=== PATIENT | female | born 1940 | race Caucasian/White ===

== ENCOUNTER 2016-04-03 10:16 | Outpatient (CLI) | payer MEDICARE, OTHER | END 2016-04-03 10:17 | disposition home or self-care (01) | DX: M79.1 Myalgia (principal); M54.5 Low back pain; M51.36 Other intervertebral disc degeneration, lumbar region; M43.16 Spondylolisthesis, lumbar region; M47.9 Spondylosis, unspecified ==

== ENCOUNTER 2016-10-29 08:00 | Outpatient (CLI) | payer MEDICARE, OTHER | END 2016-10-29 08:01 | disposition home or self-care (01) | LOC: LAB.R 08:00 | PROVIDERS: ATTEND Physician Assistant Medical | DX: N30.00 Acute cystitis without hematuria (principal) | CPT/HCPCS: 87086 ==

== ENCOUNTER 2017-07-08 08:00 | Outpatient (CLI) | payer MEDICARE, OTHER | END 2017-07-08 08:01 | disposition home or self-care (01) | LOC: LAB.R 08:00 | PROVIDERS: ATTEND Physician Assistant Medical | DX: N30.00 Acute cystitis without hematuria (principal) | CPT/HCPCS: 87086 ==

== ENCOUNTER 2017-07-14 08:15 | Outpatient (CLI) | payer MEDICARE, OTHER ==
[2017-07-14 08:29] LABS: BASOPHILS # (AUTO) 0.1 10^3/uL (0.0-0.1); BASOPHILS % (AUTO) 1.2 %; EOSINOPHILS # (AUTO) 0.4 10^3/uL (0.0-0.7); EOSINOPHILS % (AUTO) 9.3 %; HGB - HEMOGLOBIN 12.4 g/dL (12.0-16.0); LYMPHOCYTES # (AUTO) 1.4 10^3/uL (1.5-3.5); LYMPHOCYTES % (AUTO) 29.1 %; MEAN CORPUSCULAR HEMOGLOBIN 31.3 pg (27.0-31.0); MEAN CORPUSCULAR HGB CONC 34.3 g/dL (32.0-36.0); MEAN CORPUSCULAR VOLUME 91.2 fL (81.0-99.0); MEAN PLATELET VOLUME 7.2 fL (7.9-10.8); MONOCYTES # (AUTO) 0.6 10^3/uL (0.0-1.0); MONOCYTES % (AUTO) 11.9 %; NEUTROPHILS # (AUTO) 2.3 10^3/uL (1.5-6.6); NEUTROPHILS % (AUTO) 48.5 %; PLT - PLATELET COUNT 224 10^3/uL (130-450); RED BLOOD COUNT 3.97 10^6/uL (4.20-5.40); RED CELL DISTRIBUTION WIDTH 13.5 % (12.0-15.0); WHITE BLOOD COUNT 4.8 x10^3/uL (4.8-10.8)
[2017-07-14 08:46] LABS: ALBUMIN 3.7 g/dL (3.2-5.5); ALBUMIN/GLOBULIN RATIO 1.2 (1.0-2.2); ALKALINE PHOSPHATASE 80 IU/L (42-121); ALT ALANINE AMINOTRANSFERASE 20 IU/L (10-60); AST ASPARTATE AMINOTRANSFERASE 26 IU/L (10-42); BILIRUBIN,TOTAL 0.7 mg/dL (0.2-1.0); BUN - BLOOD UREA NITROGEN 25 mg/dL (6-20); CALCIUM 8.7 mg/dL (8.5-10.3); CARBON DIOXIDE - CO2 26 mmol/L (21-32); CHLORIDE 104 mmol/L (101-111); CHOL/HDL RATIO 3.6 (<4.4); CHOLESTEROL 235 mg/dL; CREATININE 1.1 mg/dL (0.4-1.0); GFR - MDRD 48 (>89); GLUCOSE 94 mg/dL (70-100); HDL CHOLESTEROL 66 mg/dL; LDL CHOLESTEROL,CALCULATED 143 mg/dL; LDL/HDL RATIO 2.2 (<4.4); SODIUM 137 mmol/L (135-145); TOTAL PROTEIN 6.9 g/dL (6.7-8.2); VLDL CHOLESTEROL 26 mg/dL
[2017-07-14 09:31] LABS: THYROID STIMULATING HORMONE 0.85 uIU/mL (0.34-5.60)
[2017-07-14 09:33] LABS: FREE T4 (FREE THYROXINE) 1.13 ng/dL (0.58-1.64)
== END 2017-07-14 08:16 | disposition home or self-care (01) ==
LOC: LAB 08:15
PROVIDERS: ATTEND Physician Assistant Medical
DX: E03.9 Hypothyroidism, unspecified (principal); E78.2 Mixed hyperlipidemia; Z79.899 Other long term (current) drug therapy
CPT/HCPCS: 36415; 80053; 80061; 83721; 84439; 84443; 84481; 85025

== ENCOUNTER 2017-07-22 14:45 | Outpatient (CLI) | payer MEDICARE, OTHER | END 2017-07-22 14:46 | disposition home or self-care (01) | LOC: LAB.R 14:45 | PROVIDERS: ATTEND Internal Medicine | DX: N30.00 Acute cystitis without hematuria (principal) | CPT/HCPCS: 87086 ==

== ENCOUNTER 2017-11-26 12:56 | Outpatient (CLI) | payer MEDICARE, OTHER | END 2017-11-26 12:57 | disposition critical access hospital (66) | LOC: EMS 12:56 | PROVIDERS: ATTEND Surgery | DX: R07.9 Chest pain, unspecified (principal); J34.89 Other specified disorders of nose and nasal sinuses; W01.0XXA Fall on same level from slipping, tripping and stumbling without subsequent striking against object, initial encounter; Y93.01 Activity, walking, marching and hiking; Y92.480 Sidewalk as the place of occurrence of the external cause | CPT/HCPCS: A0425; A0429 ==

== ENCOUNTER 2017-11-26 13:13 | Emergency (ER) | payer MEDICARE, OTHER ==
--- NOTE | 2017-11-26 14:09 | XRAY Report ---
Reason: anterior chest contusion Procedure Date: 11/26/2017 Accession Number: [id number] / [id number] Procedure: XR - Chest 2 View X-Ray CPT Code: 56911 FULL RESULT: EXAM: CHEST RADIOGRAPHY EXAM DATE: 11/26/2017 01:49 PM. CLINICAL HISTORY: Fall. Anterior chest contusion. Pain. COMPARISON: CHEST 2 VIEW PA/LAT 01/09/2015 4:19 PM. TECHNIQUE: 2 views. FINDINGS: Lungs/Pleura: Increasing interstitial densities left lung base. Costophrenic angles are clear. Right lung is clear. Normal lung volumes. No pneumothorax. Mediastinum: Heart and mediastinal contours are unremarkable. Other: None. IMPRESSION: Suspect acute on chronic lung disease consisting of small left lung base infiltrate. Correlate clinically to differentiate pneumonia from atelectasis. RADIA
--- NOTE | 2017-11-26 14:38 | ED Physician Documentation ---
PD HPI Fall - Stated complaint Stated Complaint: GLF - Chief complaint Chief Complaint: Neuro - History obtained from History obtained from: Patient - History of Present Illness Mechanism of injury: Tripped Fall distance: Standing position Where injury occurred: Street Timing - onset: Today Injury(ies) location: Face, Chest, Right Hand Quality of pain: Pain Associated symptoms: No: LOC, AMS, Amnesia, Seizures, Ear drainage, Nasal drainage, Neck pain, Weakness, Paresthesias, Dyspnea, Nausea / vomiting, Hematemesis, Abdominal distension Symptoms improve with: Rest, Ice Worsens with: Movement, Palpation Contributing factors: No: Anticoagulated Similar symptoms before: Has not had sx before Recently seen: Not recently seen - Additional information Additional information: Previously well 77-year-old female had gone to her exercise class this morning and gone out to lunch with her friend and then she was walking along the sidewalk and tripped over a 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 She barely had time to get her right hand out in front of her and has a small abrasion to the palm of her right hand. She was not knocked unconscious. She did get the wind knocked out of her and it took her a while to gather herself. She was brought to the hospital by ambulance. Her chief complaint on arrival to the emergency department is chest wall pain and some bleeding from a nasal contusion with swelling. Review of Systems Constitutional: denies: Fever Eyes: denies: Decreased vision Ears: denies: Ear pain Nose: reports: Other (nasal bridge swelling and laceration). denies: Rhinorrhea / runny nose, Congestion Cardiac: reports: Chest pain / pressure. denies: Palpitations, Pedal edema, Calf pain Respiratory: denies: Dyspnea, Cough GI: denies: Abdominal Pain, Nausea, Vomiting : denies: Dysuria, Frequency Skin: denies: Rash Musculoskeletal: denies: Neck pain, Back pain, Extremity pain Neurologic: reports: Head injury. denies: Generalized weakness, Focal weakness, Numbness, Difficulty speaking, Near syncope, Syncope, Seizure, Confused, Altered mental status, Headache, LOC PD PAST MEDICAL HISTORY - Past Medical History Past Medical History: No Cardiovascular: Hypertension Respiratory: None Neuro: None Endocrine/Autoimmune: HyPOthyroidism GI: Colon polyps : None HEENT: None Psych: None Musculoskeletal: Gout Derm: None - Past Surgical History Past Surgical History: Yes General: Colonoscopy Ortho: Knee replacement, Carpal Tunnel surgery /COOK STATION: Hysterectomy HEENT: Cataracts - Present Medications Home Medications: Ambulatory Orders Medication Instructions Recorded Confirmed Amlodipine Besylate [Norvasc] 2.5 mg PO DAILY 04/13/14 04/13/14 Calcium Carbonate [Calcium] 500 mg PO DAILY 04/13/14 04/13/14 Cholecalciferol (Vitamin D3) 400 unit PO DAILY 04/13/14 04/13/14 [Vitamin D] Levothyroxine [Synthroid] 100 mcg PO QDAC 04/13/14 04/13/14 RX: Lisinopril 20 mg PO DAILY 04/13/14 04/13/14 RX: Metoprolol Succinate 50 mg PO DAILY 04/13/14 04/13/14 RX: predniSONE [Prednisone] 3 mg PO DAILY 04/13/14 04/13/14 Zolpidem [Ambien] 5 mg PO HS 04/13/14 04/13/14 RX: HYDROcod/ACETAM 5/325 [Mason 1 - 2 ea PO Q6H PRN #15 tablet 11/26/17 5/325] - Allergies Allergies/Adverse Reactions: Allergies Allergy/AdvReac Type Severity Reaction Status Date / Time latex Allergy Rash Verified 11/26/17 13:21 Sulfa (Sulfonamide Allergy Unknown Verified 11/26/17 13:21 Antibiotics) - Social History Does the pt smoke?: No Smoking Status: Never smoker Does the pt drink ETOH?: No Does the pt have substance abuse?: No - Immunizations Immunizations are current?: Yes - POLST Patient has POLST: No PD ED PE NORMAL - Vitals Vital signs reviewed: Yes (hypertensive ) - General General: Alert and oriented X 3, No acute distress, Well developed/nourished - HEENT HEENT: PERRL, EOMI, Other (There are 2 superficial lacerations to the nasal bridge and swelling to the nasal bridge. ) - Neck Neck: Supple, no meningeal sign, No bony TTP - Cardiac Cardiac: RRR, No murmur - Respiratory Respiratory: No respiratory distress, Clear bilaterally, Other (There is marked anterior chest wall tenderness ) - Abdomen Abdomen: Soft, Non tender - Back Back: No CVA TTP, No spinal TTP - Derm Derm: Normal color, Warm and dry, No rash - Extremities Extremities: No deformity, No edema - Neuro Neuro: Alert and oriented X 3, water operator 2-12 intact, No motor deficit, No sensory def icit, Normal speech Eye Opening: Spontaneous Motor: Obeys Commands Verbal: Oriented GCS Score: 15 - Psych Psych: Normal mood Results - Vitals Vitals: Vital Signs - 24 hr 11/26/17 11/26/17 11/26/17 13:13 13:17 15:03 Temperature 36.2 C L 36.6 C Heart Rate 76 84 71 Respiratory 18 18 20 Rate Blood Pressure 164/67 H 203/109 H 169/72 H O2 Saturation 98 99 96 Oxygen O2 Source Room air - Rads (name of study) 2 view chest Radiology: Prelim report reviewed (Impression: Suspect acute on chronic lung disease consisting of small left lung base infiltrate. Correlate clinically to differentiate pneumonia from atelectasis.), EMP read indepedently, See rad report Procedures - Laceration (location) nasal bridge Length in cm: 1.5 Wound type: Linear, Superficial, Clean Neurovascular status: Sensory intact, Motor intact, Vascular intact Wound Preparation: Hibiclens, Wound explored, To the base Skin layer closure: Dermabond Other: Patient tolerated well, No complications, Neurovascular intact, Dressing applied, Tetanus UTD Complexity: Simple PD MEDICAL DECISION MAKING - ED course Complexity details: reviewed old records, reviewed results, re-evaluated patient, considered differential, d/w patient ED course: 77-year-old female with a fall onto her chest has anterior chest wall pain she does have some superficial lacerations to the nasal bridge and some swelling. She had no loss of consciousness with a fall she did get the wind knocked out of her and she has a chest wall contusion. I am seeing some mild atelectasis on her chest x-ray. Departure - Departure Disposition: 01 Home, Self Care Clinical Impression: Chest wall contusion, Laceration of nose Condition: Stable Instructions: ED Contusion Chest Wall, ED Laceration Facial Skin Glue Follow-Up: Delisa Castaneda PA-C [Primary Care Provider] - Prescriptions: RX: HYDROcod/ACETAM 5/325 [Mason 5/325] 1 - 2 ea PO Q6H PRN #15 tablet PRN Reason: Pain Discharge Date/Time: 11/26/17 15:09
[2017-11-26 15:04] VITALS: BP 169/72
== END 2017-11-26 15:09 | disposition home or self-care (01) ==
LOC: EDUNIT# → ED 13:13
DX: S20.219A Contusion of unspecified front wall of thorax, initial encounter (principal); S01.21XA Laceration without foreign body of nose, initial encounter; W01.0XXA Fall on same level from slipping, tripping and stumbling without subsequent striking against object, initial encounter; Y93.01 Activity, walking, marching and hiking; Y92.480 Sidewalk as the place of occurrence of the external cause; I10 Essential (primary) hypertension; E03.9 Hypothyroidism, unspecified; Z96.659 Presence of unspecified artificial knee joint
CPT/HCPCS: 12011; 71046; 99283

== ENCOUNTER 2017-12-29 12:17 | Outpatient (CLI) | payer MEDICARE, OTHER ==
--- NOTE | 2017-12-29 13:18 | XRAY Report ---
Reason: EXERTIONAL DYPSNEA, DEPENDENT EDEMA Procedure Date: 12/29/2017 Accession Number: [id number] / [id number] Procedure: XR - Chest 2 View X-Ray CPT Code: 16786 FULL RESULT: EXAM: CHEST RADIOGRAPHY EXAM DATE: 12/29/2017 12:57 PM. CLINICAL HISTORY: EXERTIONAL DYSPNEA, DEPENDENT EDEMA. COMPARISON: CHEST 2 VIEW 11/26/2017 1:49 PM. TECHNIQUE: 2 views. FINDINGS: Heart size is normal. Calcified plaques throughout the thoracic aorta. No consolidation, pleural effusion, or pneumothorax. Diffuse prominence of the pulmonary interstitium, increased AP diameter of the chest, and flattening of the diaphragms likely related to chronic lung disease. Mild streaky scarring and/or atelectasis in the lung bases. Mild biphasic curvature of the visualized thoracolumbar spine. IMPRESSION: No acute cardiopulmonary findings. RADIA
[2017-12-29 13:35] LABS: BASOPHILS # (AUTO) 0.1 10^3/uL (0.0-0.1); BASOPHILS % (AUTO) 1.3 %; EOSINOPHILS # (AUTO) 0.3 10^3/uL (0.0-0.7); EOSINOPHILS % (AUTO) 4.5 %; HGB - HEMOGLOBIN 12.4 g/dL (12.0-16.0); LYMPHOCYTES # (AUTO) 0.9 10^3/uL (1.5-3.5); LYMPHOCYTES % (AUTO) 12.7 %; MEAN CORPUSCULAR HEMOGLOBIN 31.7 pg (27.0-31.0); MEAN CORPUSCULAR HGB CONC 34.4 g/dL (32.0-36.0); MEAN PLATELET VOLUME 7.4 fL (7.9-10.8); MONOCYTES # (AUTO) 0.5 10^3/uL (0.0-1.0); NEUTROPHILS % (AUTO) 73.5 %; PLT - PLATELET COUNT 272 10^3/uL (130-450); RED CELL DISTRIBUTION WIDTH 13.8 % (12.0-15.0); WHITE BLOOD COUNT 6.8 x10^3/uL (4.8-10.8)
[2017-12-29 13:51] LABS: ALBUMIN 2.4 g/dL (3.2-5.5); ALBUMIN/GLOBULIN RATIO 0.7 (1.0-2.2); BILIRUBIN,TOTAL 0.5 mg/dL (0.2-1.0); CALCIUM 8.1 mg/dL (8.5-10.3); CREATININE 1.2 mg/dL (0.4-1.0); TOTAL PROTEIN 5.7 g/dL (6.7-8.2)
== END 2017-12-29 12:18 | disposition home or self-care (01) ==
LOC: DI 12:17
PROVIDERS: ATTEND Internal Medicine
DX: R06.00 Dyspnea, unspecified (principal); R60.9 Edema, unspecified
CPT/HCPCS: 36415; 71046; 80053; 83880; 85025

== ENCOUNTER 2018-01-09 08:00 | Outpatient (CLI) | payer MEDICARE, OTHER | END 2018-01-09 23:59 | disposition home or self-care (01) | LOC: LAB.N 08:00 | PROVIDERS: ATTEND Internal Medicine | DX: R60.9 Edema, unspecified (principal) | CPT/HCPCS: 36415; 85379 ==

== ENCOUNTER 2018-01-12 15:08 | Outpatient (CLI) | payer MEDICARE, OTHER ==
--- NOTE | 2018-01-12 16:51 | Ultrasound Report ---
Reason: ABNORMAL LABS,EDEMA Procedure Date: 01/12/2018 Accession Number: [id number] / [id number] Procedure: US - Duplex Ext Veins Bilateral CPT Code: FULL RESULT: EXAM: BILATERAL LOWER EXTREMITY VENOUS ULTRASOUND EXAM DATE: 01/12/2018 04:37 PM. CLINICAL HISTORY: ABNORMAL LABS,EDEMA. COMPARISON: None. TECHNIQUE: Real-time sonographic vascular imaging was performed by the rn admission through the lower extremities utilizing both color-flow and Doppler spectral analysis. Multiple client relations representative static images were saved for review. FINDINGS: Right: Common Femoral Vein (CFV): Normal. CFV-GSV Junction: Normal. Profunda Femoral Vein (PFV): Normal. Femoral Vein (FV) Prox: Normal. Femoral Vein (FV) Mid: Normal. Femoral Vein (FV) Dist: Normal. Popliteal Vein: Normal. Posterior Tibial Veins: Normal. Peroneal Veins: Normal. Left: Common Femoral Vein (CFV): Normal. CFV-GSV Junction: Normal. Profunda Femoral Vein (PFV): Normal. Femoral Vein (FV) Prox: Normal. Femoral Vein (FV) Mid: Normal. Femoral Vein (FV) Dist: Normal. Popliteal Vein: Normal. Posterior Tibial Veins: Normal. Peroneal Veins: Normal. Other: None. IMPRESSION: No evidence for deep venous thrombosis bilaterally. RADIA
== END 2018-01-12 15:09 | disposition home or self-care (01) ==
LOC: DI 15:08
PROVIDERS: ATTEND Internal Medicine
DX: R60.0 Localized edema (principal); R79.89 Other specified abnormal findings of blood chemistry
CPT/HCPCS: 93970

== ENCOUNTER 2018-01-13 08:00 | Outpatient (CLI) | payer MEDICARE, OTHER ==
[2018-01-13 12:19] LABS: ALBUMIN 2.1 g/dL (3.2-5.5); ALBUMIN/GLOBULIN RATIO 0.7 (1.0-2.2); BILIRUBIN,TOTAL 0.5 mg/dL (0.2-1.0); CALCIUM 8.2 mg/dL (8.5-10.3); CREATININE 1.1 mg/dL (0.4-1.0); TOTAL PROTEIN 5.2 g/dL (6.7-8.2)
== END 2018-01-13 23:59 | disposition home or self-care (01) ==
LOC: LAB.R 08:00
PROVIDERS: ATTEND Internal Medicine
DX: R60.9 Edema, unspecified (principal)
CPT/HCPCS: 80053

== ENCOUNTER 2018-01-13 13:46 | Outpatient (CLI) | payer MEDICARE, OTHER ==
[2018-01-13] MEDS ORDERED: IOVERSOL 320 100 ML VIAL IVP ONE ×2 (14:20→15:23)
--- NOTE | 2018-01-13 16:02 | CT Report ---
Reason: EDEMA Procedure Date: 01/13/2018 Accession Number: [id number] / [id number] Procedure: CT - Abdomen/Pelvis W/ CPT Code: FULL RESULT: EXAM: CT ABDOMEN AND PELVIS WITH CONTRAST. EXAM DATE: 01/13/2018 03:20 PM. CLINICAL HISTORY: Edema. COMPARISONS: None. TECHNIQUE: Routine helical CT imaging was performed through the abdomen and pelvis. IV contrast: ISOVUE 320 90 mL. Enteric contrast: No. Reconstructions: Coronal and sagittal. In accordance with CT protocol optimization, one or more of the following dose reduction techniques were utilized for this exam: automated exposure control, adjustment of mA and/or KV based on patient size, or use of iterative reconstructive technique. FINDINGS: Lung Bases: Unremarkable. Liver: Right hepatic hypodensity which is too small to characterize. Gallbladder/Bile Ducts: Unremarkable. Spleen: Normal. Pancreas: Normal. Adrenal Glands: Normal. Kidneys: Normal. No masses or hydronephrosis. Peritoneal Cavity/Bowel: Diverticulosis without diverticulitis. There are mass-like calcifications throughout the mesentery which measure up to 1.5 cm. No free fluid, free air or adenopathy. No masses or acute inflammatory process. The appendix is well visualized and normal. Pelvic Organs: There is a septated cystic 4.8 x 5.5 cm mass in the pelvis which arises from the left round ligament and is therefore likely adnexal in origin. The patient is status post hysterectomy. The bladder and visualized pelvic organs are within normal limits. Vasculature: Marked atherosclerosis without aneurysm. No occlusion or overt thrombus in the IVC or iliac veins. Bones: No aggressive osseous lesions are identified. Other: None. IMPRESSION: No venoocclusive disease in the IVC or iliac veins. Complex cystic likely adnexal mass. Recommend pelvic ultrasound to confirm adnexal origin versus direct referral for gynecologic management. Mass-like calcifications throughout the mesentery. RADIA
--- NOTE | 2018-01-13 16:25 | CT Report ---
Reason: EDEMA Procedure Date: 01/13/2018 Accession Number: [id number] / [id number] Procedure: CT - Chest Angio (PE) CPT Code: FULL RESULT: EXAM: CT ANGIOGRAM CHEST EXAM DATE: 01/13/2018 03:20 PM. CLINICAL HISTORY: Edema. COMPARISON: None. TECHNIQUE: Routine helical imaging was performed through the chest in the pulmonary arterial phase. IV Contrast: Isovue-320 90 mL. Reconstructions: Coronal 3-D MIP reconstructions.Sagittal and coronal. In accordance with CT protocol optimization, one or more of the following dose reduction techniques were utilized for this exam: automated exposure control, adjustment of mA and/or KV based on patient size, or use of iterative reconstructive technique. FINDINGS: Pulmonary Arteries: Diagnostic quality: Adequate through the segmental arteries. No evidence for acute or chronic pulmonary emboli. RV/LV is within normal limits. There is no interventricular septal bowing. There is no reflux of contrast material in the IVC. Lungs/Pleura: Mild lower lobe predominant interstitial septal thickening and bronchiectasis, possibly subclinical chronic aspiration. No consolidation, suspicious nodules, or edema. No effusions or pneumothorax. Mediastinum: No cardiac enlargement or adenopathy. Thoracic Aorta: Markedly atherosclerotic without aneurysm. Upper Abdomen: See separate examination. Other: None. IMPRESSION: No evidence of pulmonary embolism. RADIA
== END 2018-01-13 13:47 | disposition home or self-care (01) ==
LOC: DI 13:46
PROVIDERS: ATTEND Internal Medicine
DX: R60.0 Localized edema (principal); R79.89 Other specified abnormal findings of blood chemistry; J47.9 Bronchiectasis, uncomplicated; I70.0 Atherosclerosis of aorta; R19.00 Intra-abdominal and pelvic swelling, mass and lump, unspecified site; N94.89 Other specified conditions associated with female genital organs and menstrual cycle; Z90.710 Acquired absence of both cervix and uterus
CPT/HCPCS: 71275; 74177; Q9967; 80053

== ENCOUNTER 2018-01-20 20:38 | Outpatient (CLI) | payer MEDICARE, OTHER ==
--- NOTE | 2018-01-21 11:10 | Ultrasound Report ---
Reason: PELVIC MASS Procedure Date: 01/20/2018 Accession Number: [id number] / [id number] Procedure: US - Pelvic w/Transvaginal CPT Code: FULL RESULT: EXAM: PELVIC ULTRASOUND EXAM DATE: 01/20/2018 09:48 PM. CLINICAL HISTORY: Pelvic mass. COMPARISON: ABDOMEN/PELVIS W/ 01/13/2018 3:03 PM LUMBAR SPINE 2 VIEW 04/03/2016 11:41 AM. TECHNIQUE: Realtime transabdominal pelvic scan performed to identify the uterus and adnexa and as an overview of other pelvic structures, followed by transvaginal scan to provide greater detail of the uterus and adnexa, with static image documentation. FINDINGS: Uterus: Status post hysterectomy. Right Ovary: Not seen. No abnormal mass is seen in the right adnexal region. Left Ovary: A multiseptated cyst is seen in the left adnexal region with no definite ovary identified. The cyst measured 5.5 x 4.3 x 5.6 cm for a volume of 69 mL. No abnormal vascularity is detected within the cyst on limited color Doppler. Free Fluid: None. Other: None. IMPRESSION: Nonvisualization of the right and left ovaries. Complex left adnexal cyst measuring up to 5.6 cm as described. RADIA
== END 2018-01-20 20:39 | disposition home or self-care (01) ==
LOC: DI 20:38
PROVIDERS: ATTEND Internal Medicine
DX: N94.89 Other specified conditions associated with female genital organs and menstrual cycle (principal)
CPT/HCPCS: 76830; 76856

== ENCOUNTER 2018-01-30 13:47 | Outpatient (CLI) | payer MEDICARE, OTHER ==
[2018-01-30 13:16] LABS: BASOPHILS # (AUTO) 0.2 10^3/uL (0.0-0.1); BASOPHILS % (AUTO) 3.3 %; EOSINOPHILS # (AUTO) 0.6 10^3/uL (0.0-0.7); EOSINOPHILS % (AUTO) 9.1 %; HGB - HEMOGLOBIN 12.5 g/dL (12.0-16.0); LYMPHOCYTES % (AUTO) 15.8 %; MEAN CORPUSCULAR HEMOGLOBIN 31.9 pg (27.0-31.0); MEAN CORPUSCULAR HGB CONC 34.4 g/dL (32.0-36.0); MEAN CORPUSCULAR VOLUME 92.7 fL (81.0-99.0); MEAN PLATELET VOLUME 7.4 fL (7.9-10.8); MONOCYTES # (AUTO) 0.6 10^3/uL (0.0-1.0); MONOCYTES % (AUTO) 9.8 %; PLT - PLATELET COUNT 257 10^3/uL (130-450); RED BLOOD COUNT 3.92 10^6/uL (4.20-5.40); RED CELL DISTRIBUTION WIDTH 13.9 % (12.0-15.0); WHITE BLOOD COUNT 6.4 x10^3/uL (4.8-10.8)
[2018-01-30 13:31] LABS: ALBUMIN/GLOBULIN RATIO 0.7 (1.0-2.2); BILIRUBIN,TOTAL 0.4 mg/dL (0.2-1.0); CALCIUM 7.8 mg/dL (8.5-10.3); CREATININE 1.2 mg/dL (0.4-1.0)
== END 2018-01-30 13:48 | disposition home or self-care (01) ==
LOC: DI 13:47
PROVIDERS: ATTEND Internal Medicine
DX: R19.09 Other intra-abdominal and pelvic swelling, mass and lump (principal); R89.9 Unspecified abnormal finding in specimens from other organs, systems and tissues; R06.09 Other forms of dyspnea; R60.0 Localized edema; I10 Essential (primary) hypertension; I08.1 Rheumatic disorders of both mitral and tricuspid valves
CPT/HCPCS: 36415; 80053; 85025; 86304; 93306

== ENCOUNTER 2018-02-14 01:18 | Outpatient (CLI) | payer MEDICARE, OTHER | END 2018-02-14 01:19 | disposition critical access hospital (66) | LOC: EMS 01:18 | PROVIDERS: ATTEND Surgery | DX: R51 Headache (principal) | CPT/HCPCS: A0425; A0429 ==

== ENCOUNTER 2018-02-14 01:34 | Emergency (ER) | payer MEDICARE, OTHER ==
--- NOTE | 2018-02-14 01:48 | ED Physician Documentation ---
PD HPI HEADACHE - Stated complaint Stated Complaint: MARTINEZ - Chief complaint Chief Complaint: Neuro - History obtained from History obtained from: Patient, Family, EMS - History of Present Illness Timing - onset: Today Timing - onset during: Sleep Timing - duration: Minutes Timing - details: Abrupt onset, Still present Worst headache ever?: Worst headache ever? Location: Front, Left Quality: Throbbing Associated symptoms: Nausea, Vomiting, Eye pain. No: Fever, Stiff neck, Weakness, Numbness, Syncope, Seizure Improved by: Rest, Dark room Worsened by: Light Contributing factors: Recent illness. No: Anticoagulated, Possible carbon monoxide Similar symptoms before: Has not had sx before Recently seen: Admitted - Additional information Additional information: 77-year-old female who is a recent admission to the [facility] for nephrotic syndrome has had a kidney biopsy recently and she was discharged from the hospital yesterday. She was in bed tonight asleep when she was awakened by a sudden severe headache above the left eye. She had some nausea and vomiting associated with this and called the ambulance she denies any weakness on one side or the other or numbness. She denies a history of migraine. Review of Systems Constitutional: reports: Fatigue. denies: Fever, Chills Eyes: denies: Decreased vision Ears: denies: Ear pain Nose: denies: Rhinorrhea / runny nose, Congestion Throat: denies: Sore throat Cardiac: denies: Chest pain / pressure, Palpitations Respiratory: denies: Dyspnea, Cough GI: denies: Abdominal Pain, Nausea, Vomiting : reports: Frequency. denies: Dysuria Skin: denies: Rash Musculoskeletal: denies: Neck pain, Back pain Neurologic: reports: Headache. denies: Generalized weakness, Focal weakness, Numbness, Head injury, LOC PD PAST MEDICAL HISTORY - Past Medical History Cardiovascular: Hypertension Respiratory: None Neuro: None Endocrine/Autoimmune: HyPOthyroidism GI: Colon polyps : None HEENT: None Psych: None Musculoskeletal: Gout Derm: None - Past Surgical History Past Surgical History: Yes General: Colonoscopy Ortho: Knee replacement, Carpal Tunnel surgery /COPY MANAGER: Hysterectomy HEENT: Cataracts - Present Medications Home Medications: Ambulatory Orders Medication Instructions Recorded Confirmed RX: Metoprolol Succinate 25 mg PO DAILY 04/13/14 02/14/18 Candesartan/Hydrochlorothiazid 32 mg PO DAILY 02/14/18 02/14/18 [Candesartan-Hctz 16-12.5 mg Tb] RX: Amlodipine Besylate 10 mg PO DAILY 02/14/18 02/14/18 RX: Atorvastatin Calcium 1 tab PO DAILY 02/14/18 02/14/18 RX: Levothyroxine Sodium 1 tab PO DAILY 02/14/18 02/14/18 RX: Prednisone [Palma] 2 mg PO DAILY 02/14/18 02/14/18 RX: Torsemide 40 mg PO DAILY 02/14/18 02/14/18 RX: hydroCHLOROthiazide 1 tab PO DAILY 02/14/18 02/14/18 [Hydrochlorothiazide] - Allergies Allergies/Adverse Reactions: Allergies Allergy/AdvReac Type Severity Reaction Status Date / Time latex Allergy Rash Verified 02/14/18 01:50 Sulfa (Sulfonamide Allergy Unknown Verified 02/14/18 01:50 Antibiotics) - Social History Does the pt smoke?: No Smoking Status: Never smoker Does the pt drink ETOH?: No Does the pt have substance abuse?: No - Immunizations Immunizations are current?: Yes - POLST Patient has POLST: No PD ED PE NORMAL - Vitals Vital signs reviewed: Yes (hypertensive ) - General General: Alert and oriented X 3, Well developed/nourished, Other (appears to be in pain with heater worker tone and flat affect. Recognizes me readily. grunting in pain ) - HEENT HEENT: Atraumatic, PERRL, EOMI - Neck Neck: Supple, no meningeal sign, No bony TTP - Cardiac Cardiac: RRR, No murmur - Respiratory Respiratory: No respiratory distress, Clear bilaterally - Abdomen Abdomen: Soft, Non tender - Back Back: No CVA TTP, No spinal TTP - Derm Derm: Normal color, Warm and dry, No rash - Extremities Extremities: No deformity, Normal ROM s pain, Other (There is tender trace edema without erythema to the lower calves bilaterally ) - Neuro Neuro: Alert and oriented X 3, still operator 2-12 intact, No motor deficit, No sensory deficit Eye Opening: Spontaneous Motor: Obeys Commands Verbal: Oriented GCS Score: 15 - Psych Psych: Normal mood, Other (affect is blunted by response to pain. ) Results - Vitals Vitals: Vital Signs - 24 hr 02/14/18 02/14/18 02/14/18 01:35 01:59 02:24 Temperature 36.0 C L Heart Rate 84 79 78 Respiratory 18 18 16 Rate Blood Pressure 167/83 H 105/92 H 162/70 H O2 Saturation 98 100 98 02/14/18 02/14/18 02/14/18 02:56 03:54 04:00 Temperature 37.3 C Heart Rate 73 89 Respiratory 10 L 17 Rate Blood Pressure 144/83 H 154/67 H O2 Saturation 93 97 02/14/18 02/14/18 02/14/18 04:37 05:30 06:11 Temperature 37.4 C Heart Rate 76 72 Respiratory 13 14 Rate Blood Pressure 142/62 H 137/86 H O2 Saturation 96 96 95 Oxygen O2 Source Nasal cannula Oxygen Flow Rate 3 - Labs Labs: Laboratory Tests 02/14/18 02/14/18 02/14/18 02:25 02:25 02:25 WBC 6.2 RBC 3.90 L Hgb 12.4 Hct 35.5 L MCV 91.0 MCH 31.8 H MCHC 34.9 RDW 14.2 Plt Count 279 MPV 7.8 L Neut # (Auto) 4.0 Lymph # (Auto) 1.2 L [place] # (Auto) 0.7 Eos # (Auto) 0.3 Baso # (Auto) 0.0 Absolute Nucleated RBC 0.00 Nucleated RBC % 0.0 Sodium 131 L Potassium 4.2 Chloride 98 L Carbon Dioxide 22 Anion Gap 11.0 BUN 36 H Creatinine 1.8 H Estimated GFR (MDRD) 27 L Glucose 112 H Calcium 8.0 L Total Bilirubin 0.5 AST 33 ALT 36 Alkaline Phosphatase 81 Troponin I < 0.04 Total Protein 5.4 L Albumin 2.1 L Globulin 3.3 Albumin/Globulin Ratio 0.6 L Lipase 33 Urine Color Urine Clarity Urine pH Ur Specific [place] Urine Protein Urine Glucose (UA) Urine Ketones Urine Occult Blood Urine Nitrite Urine Bilirubin Urine Urobilinogen Ur Leukocyte Esterase Urine RBC Urine WBC Ur Squamous Epith Cells Urine Bacteria Ur Microscopic Review Urine Culture Comments 02/14/18 04:35 WBC RBC Hgb Hct MCV MCH MCHC RDW Plt Count MPV Neut # (Auto) Lymph # (Auto) [place] # (Auto) Eos # (Auto) Baso # (Auto) Absolute Nucleated RBC Nucleated RBC % Sodium Potassium Chloride Carbon Dioxide Anion Gap BUN Creatinine Estimated GFR (MDRD) Glucose Calcium Total Bilirubin AST ALT Alkaline Phosphatase Troponin I Total Protein Albumin Globulin Albumin/Globulin Ratio Lipase Urine Color YELLOW Urine Clarity CLEAR Urine pH 7.5 Ur Specific [place] 1.020 Urine Protein 100 H Urine Glucose (UA) NEGATIVE Urine Ketones NEGATIVE Urine Occult Blood TRACE-INTA Urine Nitrite NEGATIVE Urine Bilirubin NEGATIVE Urine Urobilinogen 0.2 (NORMAL) Ur Leukocyte Esterase NEGATIVE Urine RBC 0-5 Urine WBC 0-3 Ur Squamous Epith Cells RARE Squamous Urine Bacteria Rare Ur Microscopic Review INDICATED Urine Culture Comments NOT INDICATED - Rads (name of study) CT head without Radiology: Prelim report reviewed (Impression: No CT evidence of acute intracranial process.), EMP read indepedently, See rad report Procedures - IVC sono (time) 0230 Bedside IVC sono: IVC measures (cm) (0.92), IVC collapsed c insp (cm) (complete), Dehydration (est 1-2 liter volume deficit) 0350 Bedside IVC sono: IVC measures (cm) (1.52), IVC collapsed c insp (cm) (complete), Dehydration (est 0.5 liter deficit (after 1st liter in)) PD MEDICAL DECISION MAKING - ED course Complexity details: reviewed old records, reviewed results, re-evaluated patient, considered differential, d/w patient, d/w family ED course: 77-year-old female who is recently been hospitalized at the [facility] and treated for nephrotic syndrome and has been on a diuretic for the past 10 days has developed acute headache this evening in the left retro- orbital area that is awakened her from sleep and caused significant distress. She has a nonfocal neurologic examination and no meningismus. CT scan is without evidence of hemorrhage and interrogation of the inferior vena cava indicates significant dehydration. The patient appears uncomfortable with the degree of pain and she is administered saline and Dilaudid 0.5 mg along with Zofran. This helps. She is currently on 2 diuretics for a total of torsamide 40mg and hydroclothiazide 25mg. The Torsamide is new as of yesterday and while she was in the hospital she was on lasix 40mg IV daily. The medicine attending at [facility] is consulted in the case by phone and recommends discontinuing the torsamide for now and daily weights and re-introduction at a lower dose. She has an appointment to see nephrology on . Departure - Departure Disposition: 01 Home, Self Care Clinical Impression: Dehydration Condition: Stable Instructions: ED Dehydration Follow-Up: Ajit Underwood MD [Primary Care Provider] - Comments: Today it appears your headache was due to dehydration. Adjustments to your diuretics are needed. Stop the torsemide for now and weigh yourself daily. If you have a sudden increase in your weight of more than 2 lbs take the Torsemide but only 20mg. Take the rest of your medications as prescribed and follow up with the deputy director of finance as planned on the . Drink at least 2 liters (2 quarts) of fluid per day.
[2018-02-14] MEDS ORDERED: SODIUM CHLORIDE 0.9% 1,000 ML IV ONE (02:27)
--- NOTE | 2018-02-14 02:30 | CT Report ---
Reason: acute L sided headache Procedure Date: 02/14/2018 Accession Number: [id number] / [id number] Procedure: CT - Head W/O CPT Code: FULL RESULT: EXAM: CT HEAD EXAM DATE: 02/14/2018 01:59 AM. CLINICAL HISTORY: Acute severe left sided headache. COMPARISON: None. TECHNIQUE: Multiaxial CT images were obtained from the foramen magnum to the vertex. Reformats: Sagittal and coronal. IV contrast: None. In accordance with CT protocol optimization, one or more of the following dose reduction techniques were utilized for this exam: automated exposure control, adjustment of mA and/or KV based on patient size, or use of iterative reconstructive technique. FINDINGS: Parenchyma: No intraparenchymal hemorrhage. No evidence of mass, midline shift, or CT findings of infarction. There are areas of low density involving the white matter bilateral cerebral hemispheres.. Extraaxial Spaces: Normal for age. No subdural or epidural collections identified. Ventricles: Normal in size and position. Sinuses and Orbits: Imaged paranasal sinuses, orbits, and mastoids show no significant abnormality. Bones: No evidence of fracture or calvarial defect. Other: None. IMPRESSION: No CT evidence of acute intracranial process. RADIA
[2018-02-14 02:31] LABS: BASOPHILS % (AUTO) 0.7 %; EOSINOPHILS # (AUTO) 0.3 10^3/uL (0.0-0.7); EOSINOPHILS % (AUTO) 4.7 %; HGB - HEMOGLOBIN 12.4 g/dL (12.0-16.0); LYMPHOCYTES # (AUTO) 1.2 10^3/uL (1.5-3.5); LYMPHOCYTES % (AUTO) 20.1 %; MEAN CORPUSCULAR HEMOGLOBIN 31.8 pg (27.0-31.0); MEAN CORPUSCULAR HGB CONC 34.9 g/dL (32.0-36.0); MEAN PLATELET VOLUME 7.8 fL (7.9-10.8); MONOCYTES # (AUTO) 0.7 10^3/uL (0.0-1.0); MONOCYTES % (AUTO) 10.7 %; NEUTROPHILS % (AUTO) 63.8 %; PLT - PLATELET COUNT 279 10^3/uL (130-450); RED CELL DISTRIBUTION WIDTH 14.2 % (12.0-15.0); WHITE BLOOD COUNT 6.2 x10^3/uL (4.8-10.8)
[2018-02-14] MEDS ORDERED: HYDROmorphone 1 MG/ML CARPUJECT IVP STA (02:37)
[2018-02-14] MEDS ORDERED: ONDANSETRON 4 MG/2 ML VIAL IVP STA (02:37)
[2018-02-14 02:41] LABS: ALBUMIN 2.1 g/dL (3.2-5.5); ALBUMIN/GLOBULIN RATIO 0.6 (1.0-2.2); BILIRUBIN,TOTAL 0.5 mg/dL (0.2-1.0); CREATININE 1.8 mg/dL (0.4-1.0); TOTAL PROTEIN 5.4 g/dL (6.7-8.2)
[2018-02-14] MEDS ORDERED: SODIUM CHLORIDE 0.9% 500 ML IV ONE ×2 (03:57→04:31)
[2018-02-14] MEDS ORDERED: ACETAMINOPHEN 325 MG TABLET PO STA (04:30)
[2018-02-14 04:43] LABS: BILIRUBIN,URINE NEGATIVE (NEGATIVE); GLUCOSE, URINE (UA) NEGATIVE (NEGATIVE); KETONES,URINE (UA) NEGATIVE (NEGATIVE); LEUKOCYTE ESTERASE, URINE NEGATIVE (NEGATIVE); NITRITE,URINE NEGATIVE (NEGATIVE); OCCULT BLOOD,URINE TRACE-INTA (NEGATIVE); PH,URINE 7.5 PH (5.0-7.5); PROTEIN,URINE 100 mg/dL (NEGATIVE); UROBILINOGEN,URINE 0.2 (NORMAL) E.U./dL (NORMAL)
[2018-02-14 04:48] LABS: CLARITY,URINE CLEAR (CLEAR)
[2018-02-14 04:58] LABS: BACTERIA,URINE Rare /HPF (None Seen); RBC,URINE 0-5 /HPF (0-5); SQUAMOUS EPITHELIAL CELL,UR RARE Squamous (<= Few)
[2018-02-14 06:13] VITALS: BP 137/86
== END 2018-02-14 06:24 | disposition home or self-care (01) ==
LOC: EDUNIT# → ED 01:34
DX: E86.0 Dehydration (principal); I10 Essential (primary) hypertension; N04.9 Nephrotic syndrome with unspecified morphologic changes
CPT/HCPCS: 36415; 70450; 80053; 81001; 83690; 84484; 85025; 96361; 96374; 96375; 99284; 99285; A9270; J1170; 81003; 87086

== ENCOUNTER 2018-02-21 18:12 | Inpatient (IN) | payer MEDICARE, OTHER ==
[2018-02-21] MEDS ORDERED: SODIUM CHLORIDE 0.9% 500 ML IV ONE (18:51)
[2018-02-21] MEDS ORDERED: HYDROmorphone 1 MG/ML CARPUJECT IVP STA (18:53)
[2018-02-21] MEDS ORDERED: ONDANSETRON 4 MG/2 ML VIAL IVP STA (18:53)
--- NOTE | 2018-02-21 18:55 | ED Physician Documentation ---
PD HPI HEADACHE - Stated complaint Stated Complaint: MARTINEZ/BK PX - Chief complaint Chief Complaint: Neuro - History obtained from History obtained from: Patient - History of Present Illness Timing - onset: Today (This is a 77-year-old woman with history of polymyalgia rheumatica maintained on very low-dose prednisone and more recently had nephrotic syndrome with admission to [facility]. She was released from there on February 14. On the day prior to that she had a kidney biopsy. She was seen here on February 14 just after released from [facility] with headache. She was found to be dehydrated and a head CT was negative. Symptoms resolved. Today this morning she had a headache again, this time central forehead, gradual in onset not the worst headache of her life. Is associated with nausea and stomach rumbling as well as right flank pain and mild chest pain without shortness of breath. She had stopped her diuretics today. She does not feel edematous anymore. She has low appetite.) Review of Systems Constitutional: reports: Fatigue. denies: Fever, Chills Nose: denies: Rhinorrhea / runny nose, Congestion Cardiac: reports: Chest pain / pressure. denies: Palpitations Respiratory: denies: Dyspnea, Cough GI: reports: Nausea. 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: Hysterectomy HEENT: Cataracts - Present Medications Home Medications: Ambulatory Orders Medication Instructions Recorded Confirmed Metoprolol Succinate 25 mg PO DAILY 04/13/14 02/21/18 Amlodipine Besylate 5 mg PO DAILY 02/14/18 02/21/18 Candesartan/Hydrochlorothiazid 32 mg PO DAILY 02/14/18 02/21/18 [Candesartan-Hctz 16-12.5 mg Tb] Levothyroxine Sodium 1 tab PO DAILY 02/14/18 02/21/18 Prednisone [Palma] 2 mg PO DAILY 02/14/18 02/21/18 - Allergies Allergies/Adverse Reactions: Allergies Allergy/AdvReac Type Severity Reaction Status Date / Time latex Allergy Rash Verified 02/14/18 01:50 Sulfa (Sulfonamide Allergy Unknown Verified 01/05/19 01:50 Antibiotics) - Social History Does the pt smoke?: No Smoking Status: Never smoker Does the pt drink ETOH?: No Does the pt have substance abuse?: No - Immunizations Immunizations are current?: Yes - POLST Patient has POLST: No PD ED PE NORMAL - Vitals Vital signs reviewed: Yes - General General: Alert and oriented X 3, No acute distress - HEENT HEENT: PERRL, EOMI - Neck Neck: Supple, no meningeal sign, No bony TTP - Cardiac Cardiac: RRR, No murmur - Respiratory Respiratory: No respiratory distress, Clear bilaterally - Abdomen Abdomen: Normal bowel sounds, Soft, Non tender - Back Back: No CVA TTP, No spinal TTP - Extremities Extremities: Other (At most trace pitting pedal edema of the ankles) - Neuro Neuro: Alert and oriented X 3, Normal speech Results - Vitals Vitals: Vital Signs - 24 hr 02/21/18 18:23 Temperature 36.5 C Heart Rate 76 Respiratory 18 Rate Blood Pressure 153/65 H O2 Saturation 97 Oxygen O2 Source Room air Oxygen Flow Rate 3 - EKG (time done) 1901 Rate: Rate (enter#) (68) Rhythm: NSR Sawyer: Normal Intervals: Normal [place] QRS: Normal Ischemia: Normal ST segments Computer interpretation: Agree with computer - Labs Labs: Laboratory Tests 02/21/18 02/21/18 02/21/18 18:55 18:55 18:55 WBC 8.1 RBC 4.02 L Hgb 12.5 Hct 36.7 L MCV 91.1 MCH 31.0 MCHC 34.1 RDW 13.5 Plt Count 309 MPV 7.5 L Neut # (Auto) 6.5 Lymph # (Auto) 0.8 L [place] # (Auto) 0.6 Eos # (Auto) 0.1 Baso # (Auto) 0.1 Absolute Nucleated RBC 0.01 Nucleated RBC % 0.1 Sodium 121 L Potassium 4.2 Chloride 85 L Carbon Dioxide 25 Anion Gap 11.0 BUN 26 H Creatinine 1.2 H Estimated GFR (MDRD) 43 L Glucose 116 H Calcium 8.3 L Total Bilirubin 0.5 AST 30 ALT 25 Alkaline Phosphatase 79 Troponin I < 0.04 Total Protein 5.7 L Albumin 2.4 L Globulin 3.3 Albumin/Globulin Ratio 0.7 L Lipase 42 PD MEDICAL DECISION MAKING - ED course ED course: Spoke with her Yarn Finisher, yesterday her Na was 124, so going the wrong direction, multifactorial d/t Diuretic use, lack of free water restriction, and low sodium diet. He recommended placing in observation for gentle hydration and sodium correction and I spoke with Dr. Gross for admission at 7:45 PM. Departure - Departure Disposition: ED Place in Observation Clinical Impression: Dehydration, Hyponatremia Chest pain Qualifiers: Chest pain type: unspecified Qualified Code(s): R07.9 - Chest pain, unspecified Condition: Stable
[2018-02-21 19:06] LABS: BASOPHILS # (AUTO) 0.1 10^3/uL (0.0-0.1); BASOPHILS % (AUTO) 0.8 %; EOSINOPHILS # (AUTO) 0.1 10^3/uL (0.0-0.7); EOSINOPHILS % (AUTO) 1.1 %; HGB - HEMOGLOBIN 12.5 g/dL (12.0-16.0); LYMPHOCYTES # (AUTO) 0.8 10^3/uL (1.5-3.5); LYMPHOCYTES % (AUTO) 9.8 %; MEAN CORPUSCULAR HGB CONC 34.1 g/dL (32.0-36.0); MEAN CORPUSCULAR VOLUME 91.1 fL (81.0-99.0); MEAN PLATELET VOLUME 7.5 fL (7.9-10.8); MONOCYTES # (AUTO) 0.6 10^3/uL (0.0-1.0); MONOCYTES % (AUTO) 7.8 %; NEUTROPHILS # (AUTO) 6.5 10^3/uL (1.5-6.6); NEUTROPHILS % (AUTO) 80.5 %; PLT - PLATELET COUNT 309 10^3/uL (130-450); RED BLOOD COUNT 4.02 10^6/uL (4.20-5.40); RED CELL DISTRIBUTION WIDTH 13.5 % (12.0-15.0); WHITE BLOOD COUNT 8.1 x10^3/uL (4.8-10.8)
[2018-02-21 19:21] LABS: ALBUMIN 2.4 g/dL (3.2-5.5); ALBUMIN/GLOBULIN RATIO 0.7 (1.0-2.2); BILIRUBIN,TOTAL 0.5 mg/dL (0.2-1.0); CALCIUM 8.3 mg/dL (8.5-10.3); CREATININE 1.2 mg/dL (0.4-1.0); TOTAL PROTEIN 5.7 g/dL (6.7-8.2)
[2018-02-21] MEDS ORDERED: HYDROmorphone 0.5 MG/0.5 ML SYRINGE IVP PRN (19:51)
[2018-02-21] MEDS ORDERED: ACETAMINOPHEN 325 MG TABLET PO PRN (19:51)
[2018-02-21] MEDS ORDERED: PROCHLORPERAZINE 10 MG/2 ML VIAL IVP PRN (19:51)
[2018-02-21] MEDS ORDERED: ONDANSETRON ODT 4 MG TABLET TL PRN (19:51)
[2018-02-21] MEDS ORDERED: SODIUM CHLORIDE FLUSH 0.9% 10 ML SYRINGE IVP PRN (19:51)
[2018-02-21] MEDS ORDERED: HYDROcod/ACETAM 5/325 MG TABLET PO PRN (19:51)
[2018-02-21] MEDS: SODIUM CHLORIDE 0.9% 1,000 ML IV SCH (21:39)
[2018-02-21] MEDS: FAMOTIDINE 20 MG TABLET PO SCH (21:40)
--- NOTE | 2018-02-21 21:54 | HISTORY & PHYSICAL EXAMINATION ---
Chief Complaint - Chief Complaint Chief Complaint: Chest pain, headache, Low backache History of Present Illness - Admitted From Admitted From:: Emergency department - History Obtained From Records Reviewed: Emergency department records from today and previous History obtained from: Patient, ED physician Dr. Hill Exam Limitations: None - History of Present Illness HPI Comment/Other: Patient is a 77-year-old female with a past medical history significant for hypothyroidism, temporal arteritis recently diagnosed, recently diagnosed nephrotic syndrome, and question of possible polymyalgia rheumatica with diagnosis still under confirmation workup. She presents today to the emergency room with a chief complaint of chest pain that started early this morning in bed without any known exacerbation lasting approximately 1 hour resolved without any known alleviating factors other than repositioning. She describes this chest pain as central, dull, nonradiating and not associated with diaphoresis or shortness of breath. She also has had a headache throughout the day, and a generalized low back pain try merrily on the right side. She was discharged from [facility] on February she presented there with similar symptoms and was diagnosed with temporal arteritis and was found to have elevated blood pressures and according to the patient's report, this led to further workup and diagnostic studies that demonstrated nephrotic syndrome the etiology of which is still unknown but she did have a renal biopsy prior to discharge. After this discharge, she did presents to our emergency room with headache again and was found to be hyponatremic and was discharged home. Today she presented to the emergency room with similar symptoms this time her hyponatremia somewhat worsening but now down to 121 from the previous of [address] Fernandez called the patient's mushroom spawn maker from [facility] who recommended overnight observation to slowly correct the hyponatremia with gentle fluid h ydration and probable discharge in the morning for the remainder of this workup to be performed as an outpatient. In the emergency room, patient has had no chest pain and the first set of troponin is negative.EKG shows no ischemic change. History - Past Medical History Cardiovascular: reports: Hypertension Respiratory: reports: None Neuro: reports: None Endocrine/Autoimmune: reports: HyPOthyroidism GI: reports: Colon polyps : reports: None HEENT: reports: None Psych: reports: None Musculoskeletal: reports: Gout Derm: reports: None, Other (Possible diagnosis of polymyalgia rheumatica, rheumatology is still performing the workup for this) MRSA Hx?: No - Past Surgical History General: reports: Colonoscopy Ortho: reports: Knee replacement, Carpal Tunnel surgery /SNAG GRINDER: reports: Hysterectomy HEENT: reports: Cataracts - Family & Social History Family History: Mother: Alive and Well, CAD, Father: Alive and Well, Diabetes, Type 1 Family History Comment/Other: Brother was diagnosed with sarcoidosis suspected to be secondary to environmental exposure, Maternal grandmother had rheumatoid arthritis - POLST Patient has POLST: No Meds/Allgy - Home Medications Home Medications: Ambulatory Orders Medication Instructions Recorded Confirmed Metoprolol Succinate 25 mg PO DAILY 04/13/14 02/21/18 Amlodipine Besylate 5 mg PO DAILY 02/14/18 02/21/18 Candesartan/Hydrochlorothiazid 32 mg PO DAILY 02/14/18 02/21/18 [Candesartan-Hctz 16-12.5 mg Tb] Levothyroxine Sodium 1 tab PO DAILY 02/14/18 02/21/18 Prednisone [Palma] 2 mg PO DAILY 02/14/18 02/21/18 - Allergies Allergies/Adverse Reactions: Allergies Allergy/AdvReac Type Severity Reaction Status Date / Time latex Allergy Rash Verified 02/14/18 01:50 Sulfa (Sulfonamide Allergy Unknown Verified 02/14/18 01:50 Antibiotics) Review of Systems - Constitutional Constitutional: reports: Fatigue, Poor appetite - Cardiovascular Cariovascular: reports: Chest pain. denies: Irregular heart rate, Palpitations, Lightheadedness, Syncope, Exertional dyspnea - Respiratory Respiratory: reports: Wheezing, Snoring - Gastrointestinal Gastrointestinal: reports: Abdominal pain, Abdominal distention, Constipation, Diarrhea, Change in bowel habits - Genitourinary Genitourinary: denies: Dysuria, Frequency, Urgency, Hematuria - Musculoskeletal Musculoskeletal: reports: Muscle pain, Back pain - Neurological Neurological: reports: Other (Patient had transient tingling in the left arm at the same time his chest pain earlier this morning but otherwise no neurological symptoms) Prior Level of Functionality: Independent Exam - Vital Signs Reviewed Vital Signs: Yes Vital Signs: Vital Signs x48h Temp Pulse Resp BP Pulse Ox 02/21/18 20:22 73 12 157/66 H 97 02/21/18 18:23 36.5 C 76 18 153/65 H 97 Vital Signs - 24 hr 02/21/18 02/21/18 18:23 20:22 Temperature 36.5 C Heart Rate 76 73 Respiratory 18 12 Rate Blood Pressure 153/65 H 157/66 H O2 Saturation 97 97 Oxygen O2 Source Room air Oxygen Flow Rate 3 - Physical Exam General Appearance: positive: No acute distress Eyes Bilateral: positive: Normal inspection ENT: positive: ENT inspection nml Neck: positive: Nml inspection Respiratory: positive: Chest non-tender, No respiratory distress, Breath sounds nml Cardiovascular: positive: Regular rate & rhythm, No murmur, No gallop, Irregularly irregular, Extrasystoles Extremities: positive: Non-tender, No pedal edema Neurologic/Psychiatric: positive: Oriented x3, CN's nml (2-12), Motor nml, Sensation nml, Mood/affect nml Conclusion/Plan - Problem List (1) Nephrotic syndrome Conclusion/Plan: Complete management of this problem will require further outpatient management and pending the renal biopsy results that she had done at [facility]. For now, the management of her admission will be focused on the hyponatremia and recommendations as below per her mushroom spawn maker. (2) Hyponatremia Conclusion/Plan: Hyponatremia is likely secondary to the nephrotic syndrome, and has been gradually getting worse. Fortunately she does not have any neurological comp romise, and she is very low risk for any significant sequelae such as cerebral herniation. The underlying etiology will need to be addressed but this will be further managed by her mushroom spawn maker and pending the biopsy results. For now, will follow their recommendations and proceed with gentle IV fluid hydration with normal saline and follow-up sodium level in the morning. The goal will be for relatively slow correction given that this is a chronic hyponatremia, so if possible will avoid any sodium supplementation beyond the normal sodium and the IV fluid. (3) Hypothyroidism Conclusion/Plan: Chronic, no signs of acute thyroid disease. Continue home medications. Qualifiers: Hypothyroidism type: unspecified Qualified Code(s): E03.9 - Hypothyroidism, unspecified (4) Chest pain Conclusion/Plan: Her chest pain is resolved and has not recurred since her single episode this morning. She has no objective evidence of ischemia with a normal EKG and nega tive troponin levels. I will rule out with 2 more levels, but she will not likely need any further inpatient workup for this as I do suspect gastric reflux since she has been having quite a bit of hiccuping for the last couple of weeks and the pain seemed to improve with repositioning. Will defer to PCP for outpatient cardiovascular screening as necessary. Qualifiers: Chest pain type: unspecified Qualified Code(s): R07.9 - Chest pain, uns pecified - Lab Results Lab results reviewed: Yes Fish Bones: 02/21/18 18:55 02/21/18 18:55 - EKG Results EKG Interpreted Independently: Yes EKG Comparison: Old EKG unavailable
[2018-02-21] MEDS ORDERED: hydrALAZINE INJ 20 MG/ML VIAL IVP PRN (22:56)
[2018-02-22] MEDS: SODIUM CHLORIDE FLUSH 0.9% 10 ML SYRINGE IVP SCH ×3 (00:59→17:25)
[2018-02-22 02:10] LABS: BILIRUBIN,URINE NEGATIVE (NEGATIVE); GLUCOSE, URINE (UA) NEGATIVE (NEGATIVE); KETONES,URINE (UA) NEGATIVE (NEGATIVE); LEUKOCYTE ESTERASE, URINE NEGATIVE (NEGATIVE); NITRITE,URINE NEGATIVE (NEGATIVE); OCCULT BLOOD,URINE TRACE-INTA (NEGATIVE); PROTEIN,URINE 100 mg/dL (NEGATIVE); UROBILINOGEN,URINE 0.2 (NORMAL) E.U./dL (NORMAL)
[2018-02-22 02:27] LABS: CLARITY,URINE CLEAR (CLEAR)
[2018-02-22 02:31] LABS: BACTERIA,URINE Rare /HPF (None Seen); RBC,URINE None Seen /HPF (0-5); SQUAMOUS EPITHELIAL CELL,UR MOD Squamous (<= Few)
[2018-02-22 02:38] LABS: CALCIUM 7.5 mg/dL (8.5-10.3)
[2018-02-22] MEDS: LEVOTHYROXINE 125 MCG TABLET PO SCH (08:26)
[2018-02-22] MEDS: POLYETHYLENE GLYCOL 3350 17 GM PACKET PO SCH (10:07)
[2018-02-22] MEDS: METOPROLOL SUCCINATE 50 MG TABLET PO SCH (10:08)
[2018-02-22] MEDS: amLODIPine 5 MG TABLET PO SCH (10:08)
[2018-02-22] MEDS: predniSONE 1 MG TABLET PO SCH (10:09)
[2018-02-22] MEDS: SODIUM CHLORIDE 0.9% 1,000 ML IV SCH ×2 (10:40→23:24)
--- NOTE | 2018-02-22 15:45 | PROVIDER PROGRESS NOTE ---
Subjective - Prog Note Date Prog Note Date: 02/22/18 - Subjective Pt reports feeling: Improved Subjective: pt report she did not have more headache. she denies chest pain, palpitation, fever, chill, shortness of breath. Current Medications - Current Medications Current Medications: Active Medications Acetaminophen (Tylenol) 650 mg PO Q4HR PRN PRN Reason: Pain 1 to 4 Hydrocodone Bitart/Acetaminophen ([place] 5/325) 1 tab PO Q4HR PRN PRN Reason: Pain 5 to 7 Amlodipine Besylate (Norvasc) 5 mg PO DAILY [facility] Last Admin: 02/22/18 10:08 Dose: 5 mg Famotidine (Pepcid) 20 mg PO HS [facility] Last Admin: 02/21/18 21:40 Dose: 20 mg Hydralazine HCl (Apresoline Inj) 10 mg IVP Q4H PRN PRN Reason: SBP>170 OR DBP>110 Hydromorphone HCl (Dilaudid Inj Syringe) 0.5 mg IVP Q2H PRN PRN Reason: Pain 8 to 10 Sodium Chloride (Normal Saline 0.9%) 1,000 mls @ 75 mls/hr IV .[id number] [facility] Last Admin: 02/22/18 10:40 Dose: 75 mls/hr Levothyroxine Sodium (Synthroid) 125 mcg PO QDAC [facility] Last Admin: 02/22/18 08:26 Dose: 125 mcg Metoprolol Succinate (Toprol Xl) 25 mg PO DAILY [facility] Last Admin: 02/22/18 10:08 Dose: 25 mg Ondansetron HCl (Zofran Odt) 4 mg TL Q6HR PRN PRN Reason: Nausea / Vomiting Polyethylene Glycol (Miralax) 17 gm PO DAILY [facility] Last Admin: 02/22/18 10:07 Dose: Not Given Prednisone (Deltasone) 2 mg PO DAILY [facility] Last Admin: 02/22/18 10:09 Dose: 2 mg Prochlorperazine Edisylate (Compazine Inj) 10 mg IVP Q6HR PRN PRN Reason: Nausea / Vomiting Sodium Chloride (Normal Saline Flush 0.9%) 10 ml IVP PRN PRN PRN Reason: NEEDED PER PROVIDER ORDERS Sodium Chloride (Normal Saline Flush 0.9%) 10 ml IVP 0100,0900,1700 [facility] Last Admin: 02/22/18 10:08 Dose: Not Given Metoprolol Succinate 25 mg PO DAILY 04/13/14 Amlodipine Besylate 10 mg PO DAILY 02/14/18 Levothyroxine Sodium 125 mcg PO DAILY 02/14/18 Prednisone [Palma] 2 mg PO DAILY 02/14/18 Atorvastatin Calcium 40 mg PO DAILY 02/22/18 Candesartan Cilexetil 32 mg PO DAILY 02/22/18 Torsemide 40 mg PO DAILY 02/22/18 hydroCHLOROthiazide [Hydrochlorothiazide] 25 mg PO DAILY 02/22/18 Objective - Vital Signs/Intake & Output Reviewed Vital Signs: Yes Vital Signs: Vital Signs x48h Temp Pulse Resp BP Pulse Ox 02/22/18 14:47 92 02/22/18 14:38 36.3 C L 70 18 132/58 H 95 02/22/18 11:15 36.9 C 60 18 129/63 96 02/22/18 09:46 66 119/60 02/22/18 09:40 68 140/52 H Intake & Output: Intake & Output 02/19/18 02/20/18 02/21/18 02/22/18 23:59 23:59 23:59 23:59 Intake Total 818.75 1497.5 Output Total 1000 Balance 818.75 497.5 - Objective General Appearance: positive: No acute distress, Alert. negative: Lethargic Eyes Bilateral: positive: Normal inspection, PERRL, No lid inflammation, Conjunctivae nml ENT: positive: ENT inspection nml, Pharynx nml, No signs of dehydration. negative: Purulent nasal drainage, Pharyngeal erythema, Oral lesions Neck: positive: Nml inspection, Thyroid nml, No JVD, Trachea midline. negative: Thyromegaly, Lymphadenopathy (R), Lymphadenopathy (L), Stiff neck, Swelling/bruising, Tracheal deviation Respiratory: positive: Chest non-tender, No respiratory distress, Breath sounds nml. negative: Wheezes, Rales, Rhonchi Cardiovascular: positive: Regular rate & rhythm, No murmur, No gallop. negati ve: Irregularly irregular, Extrasystoles, Tachycardia, Bradycardia, JVD present, Systolic murmur, Diastolic murmur Peripheral Pulses: 2+ Radial (R), 2+ Radial (L), 2+ Dorsalis pedis (R), 2+ Dorsalis pedis (L) Abdomen: positive: Non-tender, No organomegaly, Nml bowel sounds, No distention. negative: Tenderness, Guarding, Rebound Back: positive: Nml inspection. negative: CVA tenderness (R), CVA tenderness (L) Skin: positive: Color nml, No rash, Warm, Dry. negative: Cyanosis, Diaphoresis, Pallor Extremities: positive: Non-tender, Full ROM. negative: Calf tenderness, Joint swelling, Nelda's sign/cords Neurologic/Psychiatric: positive: Oriented x3, Motor nml, Sensation nml, Mood/affect nml. negative: Weakness, Sensory loss, Facial droop, Slurred/abnml speech, Depressed mood/affect - Lab Results Fish Bones: 02/21/18 18:55 02/22/18 02:20 Other Labs: Lab Results x24hrs 02/22/18 02/22/18 02/22/18 Range/Units 02:20 02:20 02:00 WBC (4.8-10.8) x10^3/uL RBC (4.20-5.40) 10^6/uL Hgb (12.0-16.0) g/dL Hct (37.0-47.0) % MCV (81.0-99.0) fL MCH (27.0-31.0) pg MCHC (32.0-36.0) g/dL RDW (12.0-15.0) % Plt Count (130-450) 10^3/uL MPV (7.9-10.8) fL Neut # (Auto) (1.5-6.6) 10^3/uL Lymph # (Auto) (1.5-3.5) 10^3/uL [place] # (Auto) (0.0-1.0) 10^3/uL Eos # (Auto) (0.0-0.7) 10^3/uL Baso # (Auto) (0.0-0.1) 10^3/uL Absolute Nucleated RBC x10^3/uL Nucleated RBC % /100WBC Sodium 122 L (135-145) mmol/L Potassium 3.8 (3.5-5.0) mmol/L Chloride 93 L (101-111) mmol/L Carbon Dioxide 23 (21-32) mmol/L Anion Gap 6.0 (6-13) BUN 24 H (6-20) mg/dL Creatinine 1.0 (0.4-1.0) mg/dL Estimated GFR (MDRD) 54 L (>89) Glucose 109 H (70-100) mg/dL Calcium 7.5 L (8.5-10.3) mg/dL Total Bilirubin (0.2-1.0) mg/dL AST (10-42) IU/L ALT (10-60) IU/L Alkaline Phosphatase (42-121) IU/L Troponin I < 0.04 (<0.49) ng/mL Total Protein (6.7-8.2) g/dL Albumin (3.2-5.5) g/dL Globulin (2.1-4.2) g/dL Albumin/Globulin Ratio (1.0-2.2) Lipase (22-51) U/L Urine Color YELLOW Urine Clarity CLEAR (CLEAR) Urine pH 7.0 (5.0-7.5) PH Ur Specific [place] 1.020 (1.002-1.030) Urine Protein 100 H (NEGATIVE) mg/dL Urine Glucose (UA) NEGATIVE (NEGATIVE) mg/dL Urine Ketones NEGATIVE (NEGATIVE) mg/dL Urine Occult Blood [place] (NEGATIVE) Urine Nitrite NEGATIVE (NEGATIVE) Urine Bilirubin NEGATIVE (NEGATIVE) Urine Urobilinogen 0.2 (NORMAL) (NORMAL) E.U./dL Ur Leukocyte Esterase NEGATIVE (NEGATIVE) Urine RBC None Seen (0-5) /HPF Urine WBC 4-5 (0-5) /HPF Ur Squamous Epith Cells MOD Squamous H (<= Few) Urine Bacteria Rare (None Seen) /HPF Ur Microscopic Review INDICATED Urine Culture Comments NOT INDICATED 02/21/18 02/21/18 02/21/18 Range/Units 20:19 18:55 18:55 WBC (4.8-10.8) x10^3/uL RBC (4.20-5.40) 10^6/uL Hgb (12.0-16.0) g/dL Hct (37.0-47.0) % MCV (81.0-99.0) fL MCH (27.0-31.0) pg MCHC (32.0-36.0) g/dL RDW (12.0-15.0) % Plt Count (130-450) 10^3/uL MPV (7.9-10.8) fL Neut # (Auto) (1.5-6.6) 10^3/uL Lymph # (Auto) (1.5-3.5) 10^3/uL [place] # (Auto) (0.0-1.0) 10^3/uL Eos # (Auto) (0.0-0.7) 10^3/uL Baso # (Auto) (0.0-0.1) 10^3/uL Absolute Nucleated RBC x10^3/uL Nucleated RBC % /100WBC Sodium 121 L (135-145) mmol/L Potassium 4.2 (3.5-5.0) mmol/L Chloride 85 L (101-111) mmol/L Carbon Dioxide 25 (21-32) mmol/L Anion Gap 11.0 (6-13) BUN 26 H (6-20) mg/dL Creatinine 1.2 H (0.4-1.0) mg/dL Estimated GFR (MDRD) 43 L (>89) Glucose 116 H (70-100) mg/dL Calcium 8.3 L (8.5-10.3) mg/dL Total Bilirubin 0.5 (0.2-1.0) mg/dL AST 30 (10-42) IU/L ALT 25 (10-60) IU/L Alkaline Phosphatase 79 (42-121) IU/L Troponin I < 0.04 < 0.04 (<0.49) ng/mL Total Protein 5.7 L (6.7-8.2) g/dL Albumin 2.4 L (3.2-5.5) g/dL Globulin 3.3 (2.1-4.2) g/dL Albumin/Globulin Ratio 0.7 L (1.0-2.2) Lipase 42 (22-51) U/L Urine Color Urine Clarity (CLEAR) Urine pH (5.0-7.5) PH Ur Specific [place] (1.002-1.030) Urine Protein (NEGATIVE) mg/dL Urine Glucose (UA) (NEGATIVE) mg/dL Urine Ketones (NEGATIVE) mg/dL Urine Occult Blood (NEGATIVE) Urine Nitrite (NEGATIVE) Urine Bilirubin (NEGATIVE) Urine Urobilinogen (NORMAL) E.U./dL Ur Leukocyte Esterase (NEGATIVE) Urine RBC (0-5) /HPF Urine WBC (0-5) /HPF Ur Squamous Epith Cells (<= Few) Urine Bacteria (None Seen) /HPF Ur Microscopic Review Urine Culture Comments 02/21/18 Range/Units 18:55 WBC 8.1 (4.8-10.8) x10^3/uL RBC 4.02 L (4.20-5.40) 10^6/uL Hgb 12.5 (12.0-16.0) g/dL Hct 36.7 L (37.0-47.0) % MCV 91.1 (81.0-99.0) fL MCH 31.0 (27.0-31.0) pg MCHC 34.1 (32.0-36.0) g/dL RDW 13.5 (12.0-15.0) % Plt Count 309 (130-450) 10^3/uL MPV 7.5 L (7.9-10.8) fL Neut # (Auto) 6.5 (1.5-6.6) 10^3/uL Lymph # (Auto) 0.8 L (1.5-3.5) 10^3/uL [place] # (Auto) 0.6 (0.0-1.0) 10^3/uL Eos # (Auto) 0.1 (0.0-0.7) 10^3/uL Baso # (Auto) 0.1 (0.0-0.1) 10^3/uL Absolute Nucleated RBC 0.01 x10^3/uL Nucleated RBC % 0.1 /100WBC Sodium (135-145) mmol/L Potassium (3.5-5.0) mmol/L Chloride (101-111) mmol/L Carbon Dioxide (21-32) mmol/L Anion Gap (6-13) BUN (6-20) mg/dL Creatinine (0.4-1.0) mg/dL Estimated GFR (MDRD) (>89) Glucose (70-100) mg/dL Calcium (8.5-10.3) mg/dL Total Bilirubin (0.2-1.0) mg/dL AST (10-42) IU/L ALT (10-60) IU/L Alkaline Phosphatase (42-121) IU/L Troponin I (<0.49) ng/mL Total Protein (6.7-8.2) g/dL Albumin (3.2-5.5) g/dL Globulin (2.1-4.2) g/dL Albumin/Globulin Ratio (1.0-2.2) Lipase (22-51) U/L Urine Color Urine Clarity (CLEAR) Urine pH (5.0-7.5) PH Ur Specific [place] (1.002-1.030) Urine Protein (NEGATIVE) mg/dL Urine Glucose (UA) (NEGATIVE) mg/dL Urine Ketones (NEGATIVE) mg/dL Urine Occult Blood (NEGATIVE) Urine Nitrite (NEGATIVE) Urine Bilirubin (NEGATIVE) Urine Urobilinogen (NORMAL) E.U./dL Ur Leukocyte Esterase (NEGATIVE) Urine RBC (0-5) /HPF Urine WBC (0-5) /HPF Ur Squamous Epith Cells (<= Few) Urine Bacteria (None Seen) /HPF Ur Microscopic Review Urine Culture Comments ABX Reporting Has patient been on IV antibiotics over the past 48 hours?: No Sepsis Event Note (H) - Evaluation Current Stage of Sepsis: Ruled out Assessment/Plan - Problem List (1) Nephrotic syndrome Impression: resume home meds Prednisone, hold home diuretics meds continue IVF of NS at 75cc/h 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 pt denies any more chest pain all serial troponin test are negative. EKG is unremarkable continue tele and vital monitor
[2018-02-22] MEDS: FAMOTIDINE 20 MG TABLET PO SCH (20:45)
[2018-02-23] MEDS: SODIUM CHLORIDE FLUSH 0.9% 10 ML SYRINGE IVP SCH ×2 (05:40→08:53)
[2018-02-23] MEDS: LEVOTHYROXINE 125 MCG TABLET PO SCH (05:40)
[2018-02-23 06:26] LABS: CALCIUM 7.6 mg/dL (8.5-10.3); CREATININE 1.2 mg/dL (0.4-1.0)
[2018-02-23] MEDS: amLODIPine 5 MG TABLET PO SCH (08:51)
[2018-02-23] MEDS: METOPROLOL SUCCINATE 50 MG TABLET PO SCH (08:51)
[2018-02-23] MEDS: predniSONE 1 MG TABLET PO SCH (08:52)
[2018-02-23] MEDS: POLYETHYLENE GLYCOL 3350 17 GM PACKET PO SCH (08:52)
[2018-02-23 11:15] LABS: CHOL/HDL RATIO 2.9 (<4.4); CHOLESTEROL 247 mg/dL; HDL CHOLESTEROL 86 mg/dL; LDL CHOLESTEROL,CALCULATED 145 mg/dL; LDL/HDL RATIO 1.7 (<4.4); VLDL CHOLESTEROL 16 mg/dL
--- NOTE | 2018-02-23 11:38 | Discharge Plan ---
Discharge Plan Disposition: [facility] DC/Xf Condition: Good Prescriptions: Famotidine 20 mg PO DAILY #30 tablet Levothyroxine Sodium 137 mcg PO DAILY #30 tablet Torsemide 5 mg PO DAILY #30 tablet Diet: Cardiac Activity Restrictions: Activity as Tolerated Shower Restrictions: No Weight Bearing: Full Weight Instruction Topics: Famotidine tablets or gelcaps Additional Instructions or Follow Up instructions: You were admitted for low sodium and acute kidney failure. All of your diuretics were held and your were given IV fluids to fix your low salt levels and to replenish your kidneys. A lipid panel was added to this morning's labs and is still pending. On exam your appear a slight bit volume over, so to keep you well, please continue torsemide at only 5 mg per day to keep your swelling under control. Wear EZE hose daily if you can manage this. Your TSH was elevated, and the T3/T4 shows primary hypothyroidism, so your synthroid dose was adjusted to 137 mcg daily. Please get a TSH level ~4-5 weeks. Since you had the episode of acid reflux, a prescription for an H2 ronny, Pepcid was sent to the pharmacy to be taken daily. Dr. Underwood and Dr. Lee will both be getting a discharge summary. Please see Dr. Underwood within this week, or by this Friday and the kidney doctor as scheduled. STOP Hydrochlorathiazide. This is thought to be the biggest contributor to this low salt level. Please make sure you are drinking enough, but not over 2 liters per day. If you have increased confusion, problems breathing, activity intolerance, please let Dr. Underwood know, or come to the ED. Thank you for letting us care for you. No Smoking: If you smoke, Please STOP! Call for help. Follow-up with: Ajit Underwood MD [Primary Care Provider] -
--- NOTE | 2018-02-23 11:54 | DISCHARGE SUMMARY ---
Discharge Summary Admit Date: 02/21/18 Discharge Date: 02/23/18 Discharging Provider: BRETT Truong Primary Care Provider: Ajit Underwood Code Status: Attempt Resuscitation Condition at Discharge: Good Discharge Disposition: Home, Self Care - DIAGNOSES Admission Diagnoses: Nephrotic syndrome with unspecified morphologic changes (N04.9) Hypo-osmolality and hyponatremia (E87.1) Essential (primary) hypertension (I10) Hypothyroidism, unspecified (E03.9) Discharge Diagnoses with Status of Each Condition: Nephrotic syndrome (N04.9) improved, stable. CKD (chronic kidney disease), stage III (N18.3) chronic, stable. Hyponatremia (E87.1) improved. Hypertension (I10) chronic, stable. Hypothyroidism (E03.9) chronic, stable, dose adjusted. Hx of diastolic dysfunction (Z86.79) chronic, stable, torsemide reduced. GERD (gastroesophageal reflux disease) (K21.9) chronic, stable. - HPI History of Present Illness: HPI per Dr. Gross: Patient is a 77-year-old female with a past medical history significant for hypothyroidism, temporal arteritis recently diagnosed, recently diagnosed nephrotic syndrome, and question of possible polymyalgia rheumatica with diagnosis still under confirmation workup. She presents today to the emergency room with a chief complaint of chest pain that started early this morning in bed without any known exacerbation lasting approximately 1 hour resolved without any known alleviating factors other than repositioning. She describes this chest pain as central, dull, nonradiating and not associated with diaphoresis or shortness of breath. She also has had a headache throughout the day, and a generalized low back pain try merrily on the right side. She was discharged from [facility] on February she presented there with similar symptoms and was diagnosed with temporal arteritis and was found to have elevated blood pressures and according to the patient's report, this led to further workup and diagnostic studies that demonstrated nephrotic syndrome the etiology of which is still unknown but she did have a renal biopsy prior to discharge. After this discharge, she did present to our emergency room with headaches, was found to be hyponatremic and was discharged home. Today she presented to the emergency room with similar symptoms this time her hyponatremia somewhat worsening but now down to 121 from the previous of [address] 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 In the emergency room, patient has had no chest pain and the first set of troponin is negative. EKG showed no ischemic changes. - HOSPITAL COURSE Hospital Course: The patient stayed 2 midnights and her sodium came up to nearly a normal level of 132. Her home HTCZ was discontinued and her torsemide was only resumed at 1/2 the previous dose. She requested a lipid panel which showed a total CHO of 247, ratio of 1.7. She and her daughter had several questions since they have been in and out of hospitals since the new year. She was instructed to wear EZE hose daily, and to see her PCP within this week. Her synthroid dose was adjusted based on an elevated TSH, and she was instructed to take an H2 ronny to prevent acid reflux. Dr. Lucas will be getting a discharge summary. She was medically stable and replenished with enough IV fluids, so instructed to resume low dose torsemide. - ALLERGIES Allergies/Adverse Reactions: Allergies Allergy/AdvReac Type Severity Reaction Status Date / Time latex Allergy Rash Verified 02/14/18 01:50 Sulfa (Sulfonamide Allergy Unknown Verified 02/14/18 01:50 Antibiotics) - MEDICATIONS Home Medications: Ambulatory Orders Medication Instructions Recorded Confirmed Metoprolol Succinate 25 mg PO DAILY 04/13/14 02/21/18 Amlodipine Besylate 10 mg PO DAILY 02/14/18 02/22/18 Prednisone [Palma] 2 mg PO DAILY 02/14/18 02/21/18 Atorvastatin Calcium 40 mg PO DAILY 02/22/18 02/22/18 Candesartan Cilexetil 32 mg PO DAILY 02/22/18 02/22/18 Famotidine 20 mg PO DAILY #30 tablet 02/23/18 Levothyroxine Sodium 137 mcg PO DAILY #30 tablet 02/23/18 Torsemide 5 mg PO DAILY #30 tablet 02/23/18 - PHYSICAL EXAM AT DISCHARGE General Appearance: positive: No acute distress, Alert Eyes Bilateral: positive: PERRL ENT: positive: Pharynx nml, No signs of dehydration Neck: positive: Thyroid nml, No JVD, Trachea midline Respiratory: positive: Chest non-tender, No respiratory distress, Other (scattered crackles to bilateral bases) Cardiovascular: positive: Regular rate & rhythm, No gallop, Systolic murmur, Decreased pulse(s) Peripheral Pulses: positive: 1+ Abdomen: positive: Non-tender, Nml bowel sounds, Other (rounded, soft) Back: positive: Nml inspection Skin: positive: No rash, Warm, Dry Extremities: positive: Non-tender, Full ROM, Pedal edema (mild BLE edema), Joint swelling Neurologic/Psychiatric: positive: Oriented x3, CN's nml (2-12), Motor nml, Sensation nml, Mood/affect nml Reflexes: Bicep (R): 3+, Bicep (L): 3+ - LABS Result Diagrams: 02/21/18 18:55 02/23/18 05:23 - DIAGNOSTIC IMAGING Diagnostic Imaging Results: Final report reviewed Diagnostic Imaging Results Comments: EXAM: CT HEAD EXAM DATE: 02/14/2018 01:59 AM. IMPRESSION: No CT evidence of acute intracranial process. - SEPSIS Current Stage of Sepsis: Ruled out - FOLLOW UP Follow Up: Disposition: HOME Condition: Good Prescriptions: Famotidine 20 mg PO DAILY #30 tablet Levothyroxine Sodium 137 mcg PO DAILY #30 tablet Torsemide 5 mg PO DAILY #30 tablet Additional Instructions or Follow Up instructions: You were admitted for low s odium and acute kidney failure. All of your diuretics were held and your were given IV fluids to fix your low salt levels and to replenish your kidneys. A lipid panel was added to this morning's labs as requested. On exam you appeared a slight bit volume over, so to keep you well, please continue torsemide at only 5 mg per day to keep your swelling under control. Wear EZE hose daily if you can manage this. Your TSH was elevated, and the T3/T4 shows primary hypothyroidism, so your synthroid dose was adjusted to 137 mcg daily. Please get a TSH level ~4-5 weeks. Since you had the episode of acid reflux, a prescription for an H2 ronny, Pepcid was sent to the pharmacy to be taken daily. Dr. Underwood and Dr. Lee will both be getting a discharge summary. Please see Dr. Underwood within this week, or by this Friday and the kidney doctor as scheduled. STOP Hydrochlorathiazide. This is thought to be the biggest contributor to this low salt level. Please make sure you are drinking enough, but not over 2 liters per day. If you have increased confusion, problems breathing, activity intolerance, please let Dr. Underwood know, or come to the ED. Thank you for letting us care for you. - TIME SPENT Time Spent in Discharge (Minutes): 60
[2018-02-23 13:37] VITALS: BP 136/52
== END 2018-02-23 15:45 | disposition home or self-care (01) | DRG 699 ==
LOC: ED 18:12 → OBS 19:52 → OBSVTOIN 02-22 10:53 → MS2 02-22 14:28
PROVIDERS: ADMIT Family Medicine Sports Medicine; ATTEND Family Medicine Sports Medicine
DX: N04.9 Nephrotic syndrome with unspecified morphologic changes (principal); E86.0 Dehydration; I10 Essential (primary) hypertension; E87.1 Hypo-osmolality and hyponatremia; Z86.010 Personal history of colon polyps; M10.9 Gout, unspecified; Z96.659 Presence of unspecified artificial knee joint; Z90.710 Acquired absence of both cervix and uterus; E03.9 Hypothyroidism, unspecified; I12.9 Hypertensive chronic kidney disease with stage 1 through stage 4 chronic kidney disease, or unspecified chronic kidney disease; R07.9 Chest pain, unspecified; N18.3 Chronic kidney disease, stage 3 (moderate); Z88.2 Allergy status to sulfonamides; K21.9 Gastro-esophageal reflux disease without esophagitis; Z91.040 Latex allergy status; M31.5 Giant cell arteritis with polymyalgia rheumatica; R51 Headache; M54.5 Low back pain; Z79.52 Long term (current) use of systemic steroids
CPT/HCPCS: 36415; 80048; 80053; 80061; 81001; 81003; 83690; 83721; 83935; 84300; 84439; 84443; 84481; 84484; 85025; 87086; 93005; 96361; 96374; 99284

== ENCOUNTER 2018-02-26 12:10 | Outpatient (CLI) | payer MEDICARE, OTHER ==
[2018-02-26 12:54] LABS: ALBUMIN 2.4 g/dL (3.2-5.5); BUN - BLOOD UREA NITROGEN 16 mg/dL (6-20); CALCIUM 8.4 mg/dL (8.5-10.3); CARBON DIOXIDE - CO2 25 mmol/L (21-32); CHLORIDE 97 mmol/L (101-111); CREATININE 0.9 mg/dL (0.4-1.0); GFR - MDRD 61 (>89); GLUCOSE 119 mg/dL (70-100); PHOSPHORUS 3.2 mg/dL (2.5-4.6); SODIUM 129 mmol/L (135-145)
[2018-02-26 12:57] LABS: CRP - C-REACTIVE PROTEIN < 1.0 mg/dL (0-1.0)
[2018-02-26 13:14] LABS: CREATININE,URINE 42.5 mg/dL; PROTEIN/CREATININE RATIO,URINE 0.3 (<=0.2)
== END 2018-02-26 12:11 | disposition home or self-care (01) ==
LOC: LAB 12:10
PROVIDERS: ATTEND Internal Medicine Nephrology
DX: N17.9 Acute kidney failure, unspecified (principal); M35.3 Polymyalgia rheumatica
CPT/HCPCS: 36415; 80069; 82570; 84156; 85651; 86140

== ENCOUNTER 2018-03-05 08:00 | Outpatient (CLI) | payer MEDICARE, OTHER ==
[2018-03-05 14:24] LABS: BILIRUBIN,URINE NEGATIVE (NEGATIVE); GLUCOSE, URINE (UA) NEGATIVE (NEGATIVE); KETONES,URINE (UA) NEGATIVE (NEGATIVE); LEUKOCYTE ESTERASE, URINE SMALL (NEGATIVE); NITRITE,URINE NEGATIVE (NEGATIVE); OCCULT BLOOD,URINE NEGATIVE (NEGATIVE); PROTEIN,URINE 100 mg/dL (NEGATIVE); UROBILINOGEN,URINE 0.2 (NORMAL) E.U./dL (NORMAL)
[2018-03-05 14:31] LABS: BACTERIA,URINE None Seen /HPF (None Seen); CLARITY,URINE CLEAR (CLEAR); RBC,URINE 0-5 /HPF (0-5); SQUAMOUS EPITHELIAL CELL,UR NONE SEEN (<= Few)
== END 2018-03-05 23:59 ==
LOC: LAB.R 08:00
PROVIDERS: ATTEND Internal Medicine
DX: R30.0 Dysuria (principal)
CPT/HCPCS: 81001; 81003; 87086

== ENCOUNTER 2018-03-05 11:34 | Outpatient (CLI) | payer MEDICARE, OTHER ==
[2018-03-05 16:08] LABS: ALBUMIN 2.7 g/dL (3.2-5.5); CALCIUM 8.7 mg/dL (8.5-10.3); CREATININE 0.9 mg/dL (0.4-1.0); PHOSPHORUS 3.9 mg/dL (2.5-4.6)
[2018-03-05 17:18] LABS: CREATININE,URINE 42.8 mg/dL; PROTEIN/CREATININE RATIO,URINE 2.4 (<=0.2)
== END 2018-03-05 11:35 | disposition home or self-care (01) ==
LOC: LAB 11:34
PROVIDERS: ATTEND Internal Medicine Nephrology
DX: N17.9 Acute kidney failure, unspecified (principal)
CPT/HCPCS: 36415; 80069; 82570; 84156

== ENCOUNTER 2018-03-08 08:54 | Outpatient (CLI) | payer MEDICARE, OTHER ==
[2018-03-08 09:34] LABS: CHOL/HDL RATIO 3.5 (<4.4); CHOLESTEROL 321 mg/dL; HDL CHOLESTEROL 93 mg/dL; LDL CHOLESTEROL,CALCULATED 197 mg/dL; LDL/HDL RATIO 2.1 (<4.4); VLDL CHOLESTEROL 31 mg/dL
== END 2018-03-08 08:55 | disposition home or self-care (01) ==
LOC: LAB 08:54
PROVIDERS: ATTEND Internal Medicine
DX: E78.5 Hyperlipidemia, unspecified (principal); E03.9 Hypothyroidism, unspecified
CPT/HCPCS: 36415; 80061; 83721; 84443

== ENCOUNTER 2018-03-12 09:39 | Outpatient (CLI) | payer MEDICARE, OTHER ==
[2018-03-12 10:04] LABS: CREATININE,URINE 27.8 mg/dL; PROTEIN/CREATININE RATIO,URINE 2.2 (<=0.2)
[2018-03-12 10:18] LABS: ALBUMIN 2.8 g/dL (3.2-5.5); CALCIUM 8.5 mg/dL (8.5-10.3)
== END 2018-03-12 09:40 | disposition home or self-care (01) ==
LOC: LAB 09:39
PROVIDERS: ATTEND Internal Medicine Nephrology
DX: N17.9 Acute kidney failure, unspecified (principal)
CPT/HCPCS: 36415; 80069; 82570; 84156

== ENCOUNTER 2018-03-18 13:11 | Outpatient (CLI) | payer MEDICARE, OTHER ==
[2018-03-18 13:47] LABS: CREATININE,URINE 37.6 mg/dL; PROTEIN/CREATININE RATIO,URINE 3.4 (<=0.2)
[2018-03-18 14:10] LABS: CREATININE 1.1 mg/dL (0.4-1.0); PHOSPHORUS 4.2 mg/dL (2.5-4.6)
[2018-03-18 14:22] LABS: CALCIUM 8.7 mg/dL (8.5-10.3)
== END 2018-03-18 13:12 | disposition home or self-care (01) ==
LOC: LAB 13:11
PROVIDERS: ATTEND Internal Medicine Nephrology
DX: N17.9 Acute kidney failure, unspecified (principal); M35.3 Polymyalgia rheumatica
CPT/HCPCS: 36415; 80069; 82570; 84156; 85651; 86140

== ENCOUNTER 2018-03-25 11:08 | Outpatient (CLI) | payer MEDICARE, OTHER ==
[2018-03-25 11:40] LABS: ALBUMIN 2.8 g/dL (3.2-5.5); CALCIUM 8.5 mg/dL (8.5-10.3); CREATININE 1.1 mg/dL (0.4-1.0); PHOSPHORUS 4.1 mg/dL (2.5-4.6)
[2018-03-25 11:58] LABS: CREATININE,URINE 34.7 mg/dL; PROTEIN/CREATININE RATIO,URINE 4.4 (<=0.2)
== END 2018-03-25 11:09 | disposition home or self-care (01) ==
LOC: LAB 11:08
PROVIDERS: ATTEND Internal Medicine Nephrology
DX: N17.9 Acute kidney failure, unspecified (principal)
CPT/HCPCS: 36415; 80069; 82570; 84156

== ENCOUNTER 2018-04-01 08:00 | Outpatient (CLI) | payer MEDICARE, OTHER ==
[2018-04-01 12:16] LABS: ALBUMIN 2.6 g/dL (3.2-5.5); CALCIUM 8.4 mg/dL (8.5-10.3); PHOSPHORUS 3.9 mg/dL (2.5-4.6)
[2018-04-01 12:34] LABS: CREATININE,URINE 51.3 mg/dL; PROTEIN/CREATININE RATIO,URINE 13.5 (<=0.2)
== END 2018-04-01 23:59 | disposition home or self-care (01) ==
LOC: LAB 08:00
PROVIDERS: ATTEND Internal Medicine Nephrology
DX: N17.9 Acute kidney failure, unspecified (principal)
CPT/HCPCS: 36415; 80069; 82570; 84156

== ENCOUNTER 2018-04-06 11:59 | Outpatient (CLI) | payer MEDICARE, OTHER ==
--- NOTE | 2018-04-06 16:37 | XRAY Report ---
Reason: RIB PAIN, LEFT SIDED Procedure Date: 04/06/2018 Accession Number: [id number] / [id number] Procedure: WCP - Ribs w/PA Chest LT CPT Code: FULL RESULT: EXAM: LEFT RIB RADIOGRAPHY EXAM DATE: 04/06/2018 12:10 PM. CLINICAL HISTORY: RIB PAIN, LEFT SIDED. Fell onto left ribs 2 weeks ago. COMPARISON: CHEST 2 VIEW 12/29/2017 12:49 PM. TECHNIQUE: 1 view of the chest and 2 views of the ribs. FINDINGS: Bones: Bones appear osteopenic, limiting evaluation. Acute lateral left fourth, fifth and sixth rib fractures. Potential lateral left seventh and eighth rib fractures. Convex left thoracolumbar scoliosis. Lungs: Elongated bibasilar opacities compatible with scarring and atelectasis. Cannot exclude airspace disease. No pneumothorax. Mediastinum: Tortuous thoracic aorta with atherosclerotic calcifications. Other: None. IMPRESSION: 1. Multiple lateral left rib fractures with minimal displacement. If there is clinical indication to further characterize, consider CT. 2. No pneumothorax. RADIA
== END 2018-04-06 12:00 | disposition home or self-care (01) ==
LOC: DI.WCP 11:59
PROVIDERS: ATTEND Physician Assistant
DX: S22.42XA Multiple fractures of ribs, left side, initial encounter for closed fracture (principal)

== ENCOUNTER 2018-04-07 10:50 | Outpatient (CLI) | payer MEDICARE, OTHER ==
[2018-04-07 11:24] LABS: CREATININE,URINE 39.3 mg/dL
[2018-04-07 11:34] LABS: ALBUMIN 2.3 g/dL (3.2-5.5); CALCIUM 8.2 mg/dL (8.5-10.3); CREATININE 1.1 mg/dL (0.4-1.0); PHOSPHORUS 3.6 mg/dL (2.5-4.6)
== END 2018-04-07 10:51 | disposition home or self-care (01) ==
LOC: LAB 10:50
PROVIDERS: ATTEND Internal Medicine Nephrology
DX: N17.9 Acute kidney failure, unspecified (principal)
CPT/HCPCS: 36415; 80069; 82570; 84156

== ENCOUNTER 2018-04-14 12:50 | Outpatient (CLI) | payer MEDICARE, OTHER ==
--- NOTE | 2018-04-16 08:35 | DEXA Report ---
Reason: ASYMPTOMATIC MENOPAUSAL STATE Procedure Date: 04/14/2018 Accession Number: [id number] / [id number] Procedure: DEX - Dexa Spine and/or Hip CPT Code: FULL RESULT: EXAM: Dexa Spine and/or Hip DATE: 04/14/2018 1:25 PM CLINICAL HISTORY: ASYMPTOMATIC MENOPAUSAL STATE TECHNIQUE: Dual energy x-ray absorptiometry (DXA) was performed on a [employer]. Regions measured are the AP Spine, femoral neck, and if needed forearm. COMPARISON: 01/15/2016. In accordance with the International Society for Clinical Densitometry (ISCD) guidelines, data from previous exams may be reanalyzed using current recommendations and techniques. This is done to allow a more accurate basis for comparison with the current study. FINDINGS: The data for the lumbar spine is as follows: BMD (g/cm/cm) T-SCORE Z-SCORE REGION L1 1.003 -1.1 0.7 L2 1.292 0.8 2.6 L3 1.252 0.4 2.2 L4 1.265 0.5 2.3 TOTAL 1.208 0.2 2.0 NOTE: All evaluable vertebrae are used for classification The data for the hip is as follows: BMD (g/cm/cm) T-SCORE Z-SCORE REGION Neck 0.657 -2.7 -0.7 TOTAL 0.751 -2.0 -0.1 NOTE: The femoral neck or total proximal femur, whichever is lowest, is used for classification. DXA RESULTS SUMMARY: Spine SCAN DATE [age] BMD CHANGE VS CHANGE VS PREVIOUS PREVIOUS % 3/14[birth year]2018 [age] 1.268 -0.004 -0.3 01/15/2016 [age] 1.272 * Denotes significant change at the 95% confidence level. Denotes dissimilar scan types or analysis methods. DXA RESULTS SUMMARY: Hip SCAN DATE AGE BMD CHANGE VS CHANGE VS PREVIOUS PREVIOUS % [birth year]2018 [age] 0.751 0.008 1.1 01/15[birth year]2016 [age] 0.743 * Denotes significant change at the 95% confidence level. Denotes dissimilar scan types or analysis methods. IMPRESSION: THE WHO CLASSIFICATION BASED ON THE INTERNATIONAL REFERENCE STANDARD IS OSTEOPOROSIS. THE FRACTURE RISK IS HIGH. RECOMMENDATION: Patients with diagnosis of osteoporosis or osteopenia should have regular bone mineral density assessment. For those eligible for Medicare, routine testing is allowed once every 2 years. Testing frequency can be increased for patients who have rapidly progressing disease or for those who are receiving medical therapy to restore bone mass. COMMENT: World Health Organization (WHO) definitions for osteoporosis and osteopenia: NORMAL BMD: T-score at -1.0 or higher, fracture risk is low OSTEOPENIA BMD: T-score between -1.0 and -2.5, fracture risk is increased. OSTEOPOROSIS BMD: T-score at -2.5 or lower, fracture risk is high. National Osteoporosis Foundation recommends: 1. Obtain adequate dietary calcium (at least 1200 mg per day) and vitamin D (400-800 international units per day). 2. Participate, as appropriate, in regular weightbearing and muscle-strengthening exercise. 3. Avoid tobacco use and reduce alcohol and caffeine intake. 4. For more detailed information see the website at www.NOF.org.
== END 2018-04-14 12:51 | disposition home or self-care (01) ==
LOC: DI 12:50
PROVIDERS: ATTEND Physician Assistant
DX: M81.0 Age-related osteoporosis without current pathological fracture (principal)
CPT/HCPCS: 77080

== ENCOUNTER 2018-04-15 13:25 | Outpatient (CLI) | payer MEDICARE, OTHER ==
[2018-04-15 13:55] LABS: BASOPHILS # (AUTO) 0.1 10^3/uL (0.0-0.1); BASOPHILS % (AUTO) 1.4 %; EOSINOPHILS # (AUTO) 0.3 10^3/uL (0.0-0.7); EOSINOPHILS % (AUTO) 4.8 %; HGB - HEMOGLOBIN 11.8 g/dL (12.0-16.0); LYMPHOCYTES # (AUTO) 0.9 10^3/uL (1.5-3.5); LYMPHOCYTES % (AUTO) 12.5 %; MEAN CORPUSCULAR HEMOGLOBIN 31.8 pg (27.0-31.0); MEAN CORPUSCULAR HGB CONC 34.2 g/dL (32.0-36.0); MEAN CORPUSCULAR VOLUME 92.8 fL (81.0-99.0); MEAN PLATELET VOLUME 7.3 fL (7.9-10.8); MONOCYTES # (AUTO) 0.3 10^3/uL (0.0-1.0); MONOCYTES % (AUTO) 4.8 %; NEUTROPHILS # (AUTO) 5.3 10^3/uL (1.5-6.6); NEUTROPHILS % (AUTO) 76.5 %; PLT - PLATELET COUNT 303 10^3/uL (130-450); RED BLOOD COUNT 3.72 10^6/uL (4.20-5.40); RED CELL DISTRIBUTION WIDTH 13.8 % (12.0-15.0); WHITE BLOOD COUNT 6.9 x10^3/uL (4.8-10.8)
[2018-04-15 14:07] LABS: CALCIUM 7.9 mg/dL (8.5-10.3); CREATININE 1.4 mg/dL (0.4-1.0); PHOSPHORUS 3.8 mg/dL (2.5-4.6)
[2018-04-15 15:23] LABS: PROTEIN/CREATININE RATIO,URINE 35.6 (<=0.2); TOTAL PROTEIN,URINE TIMED > 2100 mg/dL
[2018-04-17 15:47] LABS: COMPLEMENT COMPONENT C3C 139 mg/dL (83-193); COMPLEMENT COMPONENT C4C 35 mg/dL (15-57)
== END 2018-04-15 13:26 | disposition home or self-care (01) ==
LOC: LAB 13:25
PROVIDERS: ATTEND Internal Medicine Nephrology
DX: M31.6 Other giant cell arteritis (principal); M35.3 Polymyalgia rheumatica; R80.9 Proteinuria, unspecified; R76.8 Other specified abnormal immunological findings in serum; N17.9 Acute kidney failure, unspecified
CPT/HCPCS: 36415; 80069; 81599; 82570; 84156; 85025; 85613; 85651; 85730; 86140; 86147; 86160

== ENCOUNTER 2018-04-22 14:31 | Outpatient (CLI) | payer MEDICARE, OTHER ==
[2018-04-22 14:58] LABS: ALBUMIN 2.2 g/dL (3.2-5.5); CALCIUM 7.8 mg/dL (8.5-10.3); CREATININE 1.4 mg/dL (0.4-1.0)
[2018-04-22 15:20] LABS: CREATININE,URINE 42.3 mg/dL; PROTEIN/CREATININE RATIO,URINE 4.3 (<=0.2)
[2018-04-22 15:26] LABS: THYROID STIMULATING HORMONE 7.4 uIU/mL (0.34-5.60)
[2018-04-22 15:28] LABS: FREE T4 (FREE THYROXINE) 1.13 ng/dL (0.58-1.64)
== END 2018-04-22 14:32 | disposition home or self-care (01) ==
LOC: LAB 14:31
PROVIDERS: ATTEND Internal Medicine Rheumatology
DX: M35.3 Polymyalgia rheumatica (principal); E03.9 Hypothyroidism, unspecified; N17.9 Acute kidney failure, unspecified
CPT/HCPCS: 36415; 80069; 82570; 84156; 84439; 84443; 85651; 86140

== ENCOUNTER 2018-04-29 11:35 | Outpatient (CLI) | payer MEDICARE, OTHER ==
--- NOTE | 2018-04-29 15:33 | XRAY Report ---
Reason: COUGH Procedure Date: 04/29/2018 Accession Number: [id number] / [id number] Procedure: WCP - Chest 2 View X-Ray CPT Code: 09668 FULL RESULT: EXAM: CHEST RADIOGRAPHY EXAM DATE: 04/29/2018 11:50 AM. CLINICAL HISTORY: Cough. COMPARISON: RIBS W/PA CHEST LT 04/06/2018 11:54 AM CHEST 2 VIEW 12/29/2017 12:49 PM. TECHNIQUE: 2 views. FINDINGS: Lungs/Pleura: Subsegmental left basilar platelike opacities are noted consistent with atelectasis. No confluent airspace opacities. No significant effusion and no extraventilatory air. Mediastinum: Heart and mediastinal contours are unremarkable. Other: Callus formation along a healing right anterior seventh rib fracture is noted on the frontal projection. IMPRESSION: Subsegmental left basilar platelike opacities consistent with atelectasis. RADIA
== END 2018-04-29 11:36 | disposition home or self-care (01) ==
LOC: DI.WCP 11:35
PROVIDERS: ATTEND Internal Medicine Rheumatology
DX: R05 Cough (principal); R91.8 Other nonspecific abnormal finding of lung field; N17.9 Acute kidney failure, unspecified
CPT/HCPCS: 36415; 71046; 80069; 82570; 84156

== ENCOUNTER 2018-04-29 13:31 | Outpatient (CLI) | payer MEDICARE, OTHER ==
[2018-04-29 13:57] LABS: ALBUMIN 2.1 g/dL (3.2-5.5); CALCIUM 7.4 mg/dL (8.5-10.3); CREATININE 1.4 mg/dL (0.4-1.0); PHOSPHORUS 2.6 mg/dL (2.5-4.6)
[2018-04-29 14:24] LABS: CREATININE,URINE 45.6 mg/dL; PROTEIN/CREATININE RATIO,URINE 1.8 (<=0.2)
== END 2018-04-29 13:32 | disposition home or self-care (01) ==
LOC: LAB 13:31
PROVIDERS: ATTEND Internal Medicine Nephrology
DX: N17.9 Acute kidney failure, unspecified (principal)
CPT/HCPCS: 36415; 80069; 82570; 84156

== ENCOUNTER 2018-05-01 08:00 | Outpatient (CLI) | payer MEDICARE, OTHER | END 2018-05-01 23:59 | disposition home or self-care (01) | LOC: LAB.R 08:00 | PROVIDERS: ATTEND Physician Assistant | DX: R69 Illness, unspecified (principal) | CPT/HCPCS: 87275; 87276 ==

== ENCOUNTER 2018-05-06 10:07 | Outpatient (CLI) | payer MEDICARE, OTHER ==
[2018-05-06 10:28] LABS: CREATININE,URINE 32.4 mg/dL
[2018-05-06 10:38] LABS: ALBUMIN 1.8 g/dL (3.2-5.5); CALCIUM 8.5 mg/dL (8.5-10.3); CREATININE 1.4 mg/dL (0.4-1.0); PHOSPHORUS 3.1 mg/dL (2.5-4.6)
[2018-05-06 10:51] LABS: BASOPHILS % (AUTO) 0.3 %; EOSINOPHILS # (AUTO) 0.2 10^3/uL (0.0-0.7); EOSINOPHILS % (AUTO) 1.7 %; HGB - HEMOGLOBIN 12.5 g/dL (12.0-16.0); LYMPHOCYTES # (AUTO) 1.8 10^3/uL (1.5-3.5); LYMPHOCYTES % (AUTO) 18.2 %; MEAN CORPUSCULAR HEMOGLOBIN 31.5 pg (27.0-31.0); MEAN CORPUSCULAR HGB CONC 34.5 g/dL (32.0-36.0); MEAN CORPUSCULAR VOLUME 91.2 fL (81.0-99.0); MEAN PLATELET VOLUME 8.1 fL (7.9-10.8); MONOCYTES # (AUTO) 0.7 10^3/uL (0.0-1.0); MONOCYTES % (AUTO) 7.2 %; NEUTROPHILS # (AUTO) 7.1 10^3/uL (1.5-6.6); NEUTROPHILS % (AUTO) 72.6 %; PLT - PLATELET COUNT 364 10^3/uL (130-450); RED BLOOD COUNT 3.95 10^6/uL (4.20-5.40); RED CELL DISTRIBUTION WIDTH 13.1 % (12.0-15.0); WHITE BLOOD COUNT 9.8 x10^3/uL (4.8-10.8)
== END 2018-05-06 10:08 | disposition home or self-care (01) ==
LOC: LAB 10:07
PROVIDERS: ATTEND Internal Medicine Nephrology
DX: N17.9 Acute kidney failure, unspecified (principal); J18.9 Pneumonia, unspecified organism
CPT/HCPCS: 36415; 80069; 82570; 84156; 85025

== ENCOUNTER 2018-05-15 09:11 | Outpatient (CLI) | payer MEDICARE, OTHER ==
[2018-05-15 09:41] LABS: CREATININE,URINE 50.2 mg/dL; PROTEIN/CREATININE RATIO,URINE 0.6 (<=0.2)
[2018-05-15 09:43] LABS: ALBUMIN 2.3 g/dL (3.2-5.5); CALCIUM 8.3 mg/dL (8.5-10.3); CREATININE 1.2 mg/dL (0.4-1.0); PHOSPHORUS 2.5 mg/dL (2.5-4.6)
== END 2018-05-15 09:12 | disposition home or self-care (01) ==
LOC: LAB 09:11
PROVIDERS: ATTEND Internal Medicine Nephrology
DX: N17.9 Acute kidney failure, unspecified (principal)
CPT/HCPCS: 36415; 80069; 82570; 84156

== ENCOUNTER 2018-05-21 14:05 | Outpatient (CLI) | payer MEDICARE, OTHER ==
[2018-05-21 14:34] LABS: PROTEIN/CREATININE RATIO,URINE 0.7 (<=0.2)
[2018-05-21 14:44] LABS: ALBUMIN 2.7 g/dL (3.2-5.5); CALCIUM 8.4 mg/dL (8.5-10.3); PHOSPHORUS 3.3 mg/dL (2.5-4.6)
== END 2018-05-21 14:06 | disposition home or self-care (01) ==
LOC: LAB 14:05
PROVIDERS: ATTEND Internal Medicine Nephrology
DX: N17.9 Acute kidney failure, unspecified (principal)
CPT/HCPCS: 36415; 80069; 82570; 84156

== ENCOUNTER 2018-05-26 10:19 | Outpatient (CLI) | payer MEDICARE, OTHER ==
[2018-05-26 12:08] LABS: THYROID STIMULATING HORMONE 2.84 uIU/mL (0.34-5.60)
[2018-05-26 12:10] LABS: FREE T4 (FREE THYROXINE) 1.33 ng/dL (0.58-1.64)
== END 2018-05-26 10:20 | disposition home or self-care (01) ==
LOC: LAB 10:19
PROVIDERS: ATTEND Internal Medicine Rheumatology
DX: M35.3 Polymyalgia rheumatica (principal); E03.9 Hypothyroidism, unspecified
CPT/HCPCS: 36415; 84439; 84443; 85651; 86140

== ENCOUNTER 2018-05-28 09:18 | Outpatient (CLI) | payer MEDICARE, OTHER ==
[2018-05-28 09:45] LABS: CREATININE,URINE 40.4 mg/dL; PROTEIN/CREATININE RATIO,URINE 0.5 (<=0.2)
[2018-05-28 09:49] LABS: ALBUMIN 2.9 g/dL (3.2-5.5); CALCIUM 8.5 mg/dL (8.5-10.3); PHOSPHORUS 3.4 mg/dL (2.5-4.6)
== END 2018-05-28 09:19 | disposition home or self-care (01) ==
LOC: LAB 09:18
PROVIDERS: ATTEND Internal Medicine Nephrology
DX: N17.9 Acute kidney failure, unspecified (principal)
CPT/HCPCS: 36415; 80069; 82570; 84156

== ENCOUNTER 2018-06-12 10:26 | Outpatient (CLI) | payer MEDICARE, OTHER ==
[2018-06-12 11:08] LABS: ALBUMIN 3.2 g/dL (3.2-5.5); CALCIUM 9.1 mg/dL (8.5-10.3); CREATININE 1.1 mg/dL (0.4-1.0); PHOSPHORUS 3.7 mg/dL (2.5-4.6)
[2018-06-12 11:29] LABS: PROTEIN/CREATININE RATIO,URINE 0.5 (<=0.2)
== END 2018-06-12 10:27 | disposition home or self-care (01) ==
LOC: LAB 10:26
PROVIDERS: ATTEND Internal Medicine Nephrology
DX: N17.9 Acute kidney failure, unspecified (principal)
CPT/HCPCS: 36415; 80069; 82570; 84156

== ENCOUNTER 2018-06-26 13:48 | Outpatient (CLI) | payer MEDICARE, OTHER ==
[2018-06-26 14:39] LABS: CRP - C-REACTIVE PROTEIN < 1.0 mg/dL (0-1.0)
[2018-06-26 14:51] LABS: ALBUMIN 3.3 g/dL (3.2-5.5); BUN - BLOOD UREA NITROGEN 30 mg/dL (6-20); CALCIUM 8.5 mg/dL (8.5-10.3); CARBON DIOXIDE - CO2 26 mmol/L (21-32); CHLORIDE 101 mmol/L (101-111); CREATININE 1.1 mg/dL (0.4-1.0); GFR - MDRD 48 (>89); GLUCOSE 232 mg/dL (70-100); PHOSPHORUS 2.2 mg/dL (2.5-4.6); SODIUM 137 mmol/L (135-145)
[2018-06-26 14:52] LABS: CREATININE,URINE 91.3 mg/dL; PROTEIN/CREATININE RATIO,URINE 0.4 (<=0.2)
== END 2018-06-26 13:49 | disposition home or self-care (01) ==
LOC: LAB 13:48
PROVIDERS: ATTEND Internal Medicine Rheumatology
DX: N17.9 Acute kidney failure, unspecified (principal); M35.3 Polymyalgia rheumatica
CPT/HCPCS: 36415; 80069; 82570; 84156; 85651; 86140

== ENCOUNTER 2018-06-29 12:53 | Outpatient (CLI) | payer MEDICARE, OTHER ==
[2018-06-29 13:15] LABS: BASOPHILS # (AUTO) 0.1 10^3/uL (0.0-0.1); BASOPHILS % (AUTO) 0.6 %; HGB - HEMOGLOBIN 12.5 g/dL (12.0-16.0); LYMPHOCYTES % (AUTO) 6.4 %; MEAN CORPUSCULAR HEMOGLOBIN 30.5 pg (27.0-31.0); MEAN CORPUSCULAR HGB CONC 33.1 g/dL (32.0-36.0); MEAN CORPUSCULAR VOLUME 92.2 fL (81.0-99.0); MEAN PLATELET VOLUME 7.9 fL (7.9-10.8); MONOCYTES # (AUTO) 0.5 10^3/uL (0.0-1.0); NEUTROPHILS # (AUTO) 14.1 10^3/uL (1.5-6.6); PLT - PLATELET COUNT 229 10^3/uL (130-450); RED CELL DISTRIBUTION WIDTH 15.2 % (12.0-15.0); WHITE BLOOD COUNT 15.6 x10^3/uL (4.8-10.8)
[2018-06-29 13:29] LABS: ALBUMIN 3.6 g/dL (3.2-5.5); ALBUMIN/GLOBULIN RATIO 1.6 (1.0-2.2); ALKALINE PHOSPHATASE 69 IU/L (42-121); ALT ALANINE AMINOTRANSFERASE 30 IU/L (10-60); AST ASPARTATE AMINOTRANSFERASE 24 IU/L (10-42); BUN - BLOOD UREA NITROGEN 34 mg/dL (6-20); CALCIUM 8.8 mg/dL (8.5-10.3); CARBON DIOXIDE - CO2 27 mmol/L (21-32); CHLORIDE 102 mmol/L (101-111); CREATININE 1.1 mg/dL (0.4-1.0); CRP - C-REACTIVE PROTEIN < 1.0 mg/dL (0-1.0); GFR - MDRD 48 (>89); GLUCOSE 168 mg/dL (70-100); SODIUM 138 mmol/L (135-145); TOTAL PROTEIN 5.9 g/dL (6.7-8.2)
[2018-06-29 14:13] LABS: PLATELET ESTIMATE, MANUAL NORMAL (130-450,000) (NORMAL); PLATELET MORPHOLOGY NORMAL APPEARANCE (NORMAL); RBC MORPHOLOGY (MULTIPLE) NORMAL APPEARANCE (NORMAL)
[2018-07-01 11:26] LABS: DNA (DS) ANTIBODY 121 IU/mL
[2018-07-01 14:36] LABS: COMPLEMENT COMPONENT C3C 137 mg/dL (83-193); COMPLEMENT COMPONENT C4C 29 mg/dL (15-57)
== END 2018-06-29 12:54 | disposition home or self-care (01) ==
LOC: LAB 12:53
PROVIDERS: ATTEND Internal Medicine Rheumatology
DX: M35.3 Polymyalgia rheumatica (principal); N04.9 Nephrotic syndrome with unspecified morphologic changes; R76.8 Other specified abnormal immunological findings in serum
CPT/HCPCS: 36415; 80053; 85025; 85651; 86140; 86160; 86225

== ENCOUNTER 2018-07-02 11:37 | Outpatient (CLI) | payer MEDICARE, OTHER ==
[2018-07-02 12:14] LABS: CREATININE,URINE 29.8 mg/dL; PROTEIN/CREATININE RATIO,URINE 0.3 (<=0.2)
[2018-07-02 12:19] LABS: ALBUMIN 3.5 g/dL (3.2-5.5); PHOSPHORUS 3.6 mg/dL (2.5-4.6)
== END 2018-07-02 11:38 | disposition home or self-care (01) ==
LOC: LAB 11:37
PROVIDERS: ATTEND Internal Medicine Nephrology
DX: N17.9 Acute kidney failure, unspecified (principal); M35.3 Polymyalgia rheumatica
CPT/HCPCS: 36415; 80069; 82570; 84156; 85651; 86140

== ENCOUNTER 2018-07-14 08:00 | Outpatient (CLI) | payer MEDICARE, OTHER ==
[2018-07-14 12:48] LABS: HB2 TOTAL 12.3 g/dL; HEMOGLOBIN A1C 0.69 g/dL; HEMOGLOBIN A1C % 7.3 % (4.6-6.2)
== END 2018-07-14 23:59 | disposition home or self-care (01) ==
LOC: LAB 08:00
PROVIDERS: ATTEND Physician Assistant
DX: M10.9 Gout, unspecified (principal); R73.9 Hyperglycemia, unspecified
CPT/HCPCS: 36415; 83036; 84550

== ENCOUNTER 2018-08-03 08:00 | Outpatient (CLI) | payer MEDICARE, OTHER ==
[2018-08-03 14:43] LABS: ALBUMIN 3.7 g/dL (3.2-5.5); CALCIUM 8.7 mg/dL (8.5-10.3); CREATININE 1.4 mg/dL (0.4-1.0); PHOSPHORUS 3.7 mg/dL (2.5-4.6)
[2018-08-03 14:44] LABS: CREATININE,URINE 25.1 mg/dL; TOTAL PROTEIN,URINE TIMED < 6 mg/dL
[2018-08-03 15:48] LABS: T4 (THYROXINE) 11.59 ug/dL (6.09-12.23)
[2018-08-03 15:52] LABS: THYROID STIMULATING HORMONE 0.26 uIU/mL (0.34-5.60)
== END 2018-08-03 23:59 | disposition home or self-care (01) ==
LOC: LAB 08:00
PROVIDERS: ATTEND Internal Medicine Nephrology
DX: N17.9 Acute kidney failure, unspecified (principal); E03.9 Hypothyroidism, unspecified
CPT/HCPCS: 36415; 80069; 82570; 84156; 84436; 84443

== ENCOUNTER 2018-08-03 10:47 | Outpatient (CLI) | payer MEDICARE, OTHER ==
--- NOTE | 2018-08-04 16:05 | XRAY Report ---
Reason: FOOT PAIN,LEFT Procedure Date: 08/03/2018 Accession Number: [id number] / [id number] Procedure: WCP - Foot 3 View LT CPT Code: FULL RESULT: EXAM: LEFT FOOT RADIOGRAPHY EXAM DATE: 08/03/2018 11:09 AM. CLINICAL HISTORY: Foot pain, left. COMPARISON: FOOT 3 VIEW LT 07/19/2014 8:57 AM. TECHNIQUE: 3 views. FINDINGS: Bones: Mildly displaced transverse fracture mid third metatarsal shaft with 25% plantar lateral displacement. Remaining bony structures intact. Joints: Mild degenerative joint disease in the first MTP joint, stable. Mild midfoot degenerative joint disease, stable. Soft Tissues: Normal. No soft tissue swelling. IMPRESSION: 1. Mildly displaced third metatarsal midshaft fracture. RADIA
== END 2018-08-03 10:48 | disposition home or self-care (01) ==
LOC: DI.WCP 10:47
PROVIDERS: ATTEND Physician Assistant
DX: S92.332A Displaced fracture of third metatarsal bone, left foot, initial encounter for closed fracture (principal); N17.9 Acute kidney failure, unspecified; E03.9 Hypothyroidism, unspecified
CPT/HCPCS: 36415; 80069; 82570; 84156; 84436; 84443

== ENCOUNTER 2018-08-31 13:22 | Outpatient (CLI) | payer MEDICARE, OTHER ==
[2018-08-31 14:05] LABS: ALBUMIN 3.8 g/dL (3.2-5.5); CALCIUM 9.3 mg/dL (8.5-10.3); CREATININE 1.4 mg/dL (0.4-1.0); PHOSPHORUS 4.5 mg/dL (2.5-4.6)
[2018-08-31 14:07] LABS: CREATININE,URINE 29.6 mg/dL; TOTAL PROTEIN,URINE TIMED < 6 mg/dL
[2018-08-31 14:42] LABS: FREE T4 (FREE THYROXINE) 1.81 ng/dL (0.58-1.64); THYROID STIMULATING HORMONE 0.18 uIU/mL (0.34-5.60)
== END 2018-08-31 13:23 | disposition home or self-care (01) ==
LOC: LAB 13:22
PROVIDERS: ATTEND Internal Medicine Nephrology
DX: N17.9 Acute kidney failure, unspecified (principal); E03.9 Hypothyroidism, unspecified; M10.9 Gout, unspecified
CPT/HCPCS: 36415; 80069; 82570; 84156; 84439; 84443; 84550

== ENCOUNTER 2018-09-18 09:06 | Outpatient (CLI) | payer MEDICARE, OTHER ==
[2018-09-18 09:31] LABS: ALBUMIN 3.9 g/dL (3.2-5.5); CREATININE 1.2 mg/dL (0.4-1.0); PHOSPHORUS 3.5 mg/dL (2.5-4.6)
[2018-09-18 10:55] LABS: FREE T4 (FREE THYROXINE) 1.61 ng/dL (0.58-1.64)
[2018-09-18 13:01] LABS: CREATININE,URINE 24.2 mg/dL; MICROALBUM/CREATININE RATIO,UR 86.8 ug/mg (<30.0); MICROALBUMIN,URINE 2.1 mg/dL (0-300.0)
== END 2018-09-18 09:07 | disposition home or self-care (01) ==
LOC: LAB 09:06
PROVIDERS: ATTEND Internal Medicine Nephrology
DX: N17.9 Acute kidney failure, unspecified (principal); E03.9 Hypothyroidism, unspecified
CPT/HCPCS: 36415; 80069; 82043; 82570; 84439; 84443

== ENCOUNTER 2018-10-15 09:00 | Outpatient (CLI) | payer MEDICARE, OTHER ==
--- NOTE | 2018-10-16 08:57 | XRAY Report ---
Reason: LOW BACK PAIN Procedure Date: 10/15/2018 Accession Number: [id number] / [id number] Procedure: WCP - Lumbar Spine 2 View CPT Code: FULL RESULT: EXAM: LUMBOSACRAL SPINE RADIOGRAPHY EXAM DATE: 10/15/2018 10:55 AM. CLINICAL HISTORY: Low back pain. COMPARISONS: LUMBAR SPINE 2 VIEW 04/03/2016 11:41 AM. TECHNIQUE: 3 views. FINDINGS: Alignment: There is mild to moderate rightward lower lumbar scoliosis, which appears stable. There is stable grade 1 anterolisthesis of L3 on L4. Alignment elsewhere appears within normal limits. Bones: Five [id number] lumbar vertebral bodies are present. No fractures or bone lesions. Mild vertebral body osteophytic spurring throughout the lumbar spine. Disks: Stable moderate narrowing of the disk spaces at L2-L3 and L3-L4. Moderate to severe narrowing at L4-L5 and L5-S1. Facets: Stable mild to moderate hypertrophic changes at the facet articulations bilaterally at L4-L5 and L5-S1. Sacroiliac Joints: Unremarkable. Soft Tissues: Moderately heavy mural calcification of the abdominal aorta. IMPRESSION: Stable moderate multilevel degenerative changes of the lumbar spine, and anterolisthesis of L3 and L4. RADIA
== END 2018-10-15 23:59 | disposition home or self-care (01) ==
LOC: DI.WCP 09:00 → EDSTATUS 13:30 → DI.WCP 23:59
PROVIDERS: ATTEND Family Medicine
DX: M51.36 Other intervertebral disc degeneration, lumbar region (principal); M51.37 Other intervertebral disc degeneration, lumbosacral region; M47.816 Spondylosis without myelopathy or radiculopathy, lumbar region; M47.817 Spondylosis without myelopathy or radiculopathy, lumbosacral region; M43.16 Spondylolisthesis, lumbar region; M41.9 Scoliosis, unspecified
CPT/HCPCS: 72100

== ENCOUNTER 2018-10-19 09:03 | Outpatient (CLI) | payer MEDICARE, OTHER ==
[2018-10-19 10:03] LABS: ALBUMIN 3.5 g/dL (3.2-5.5); CALCIUM 8.6 mg/dL (8.5-10.3); CREATININE 1.2 mg/dL (0.4-1.0); PHOSPHORUS 3.7 mg/dL (2.5-4.6)
[2018-10-19 10:03] LABS: CREATININE,URINE 34.7 mg/dL; TOTAL PROTEIN,URINE TIMED < 6 mg/dL
[2018-10-19 10:04] LABS: HB2 TOTAL 11.2 g/dL; HEMOGLOBIN A1C 0.49 g/dL; HEMOGLOBIN A1C % 6.2 % (4.6-6.2)
== END 2018-10-19 09:04 | disposition home or self-care (01) ==
LOC: LAB 09:03
PROVIDERS: ATTEND Internal Medicine Nephrology
DX: N17.9 Acute kidney failure, unspecified (principal); R73.9 Hyperglycemia, unspecified; E03.9 Hypothyroidism, unspecified
CPT/HCPCS: 36415; 80069; 82570; 83036; 84156; 84443

== ENCOUNTER 2018-10-23 14:47 | Outpatient (CLI) | payer MEDICARE, OTHER ==
--- NOTE | 2018-10-26 10:31 | Ultrasound Report ---
Reason: PELVIC MASS Procedure Date: 10/23/2018 Accession Number: [id number] / [id number] Procedure: US - Pelvic w/Transvaginal CPT Code: FULL RESULT: EXAM: PELVIC ULTRASOUND EXAM DATE: 10/23/2018 04:49 PM. CLINICAL HISTORY: PELVIC MASS. COMPARISON: PELVIC W/TRANSVAGINAL 01/20/2018 9:22 PM ABDOMEN/PELVIS W/ 01/13/2018 3:03 PM. TECHNIQUE: Realtime transabdominal pelvic scan performed as an overview , followed by transvaginal scan to provide greater detail, with static image documentation. FINDINGS: Uterus: Surgically absent Right Ovary: Not seen. No adnexal mass. Left Ovary: Septated 5.3 x 4.2 x 5.7 cm cyst, previous measurement 5.5 x 4.3 x 5.6 cm on 01/20/2018. No abnormal vascularity or mural nodule identified. Free Fluid: None. Other: None. IMPRESSION: 1. Status post hysterectomy. 2. Right ovary not identified. No right adnexal masses. 3. Stable septated left ovarian cyst 5.5 x 4.3 x 5.6 cm. 4. Suggest follow-up pelvic ultrasound in 1 year. RADIA
== END 2018-10-23 14:48 | disposition home or self-care (01) ==
LOC: DI 14:47
PROVIDERS: ATTEND Family Medicine
DX: N83.292 Other ovarian cyst, left side (principal); Z90.710 Acquired absence of both cervix and uterus
CPT/HCPCS: 76830; 76856

== ENCOUNTER 2018-11-18 12:00 | Outpatient (CLI) | payer MEDICARE, OTHER ==
[2018-11-18 13:35] LABS: FREE T4 (FREE THYROXINE) 1.54 ng/dL (0.58-1.64)
== END 2018-11-18 12:01 | disposition home or self-care (01) ==
LOC: LAB 12:00
PROVIDERS: ATTEND Physician Assistant
DX: E03.9 Hypothyroidism, unspecified (principal)
CPT/HCPCS: 36415; 84439; 84443

== ENCOUNTER 2018-12-16 10:29 | Outpatient (CLI) | payer MEDICARE, OTHER ==
[2018-12-16 10:49] LABS: BASOPHILS # (AUTO) 0.1 10^3/uL (0.0-0.1); BASOPHILS % (AUTO) 0.8 %; EOSINOPHILS # (AUTO) 0.4 10^3/uL (0.0-0.7); EOSINOPHILS % (AUTO) 5.6 %; HGB - HEMOGLOBIN 11.9 g/dL (12.0-16.0); LYMPHOCYTES # (AUTO) 1.1 10^3/uL (1.5-3.5); LYMPHOCYTES % (AUTO) 18.2 %; MEAN CORPUSCULAR HEMOGLOBIN 30.4 pg (27.0-31.0); MEAN CORPUSCULAR VOLUME 95.1 fL (81.0-99.0); MEAN PLATELET VOLUME 9.4 fL (7.9-10.8); MONOCYTES # (AUTO) 0.6 10^3/uL (0.0-1.0); MONOCYTES % (AUTO) 9.9 %; NEUTROPHILS # (AUTO) 4.1 10^3/uL (1.5-6.6); NEUTROPHILS % (AUTO) 65.2 %; PLT - PLATELET COUNT 253 10^3/uL (130-450); RED BLOOD COUNT 3.91 10^6/uL (4.20-5.40); RED CELL DISTRIBUTION WIDTH 13.2 % (12.0-15.0); WHITE BLOOD COUNT 6.3 x10^3/uL (4.8-10.8)
[2018-12-16 11:03] LABS: HB2 TOTAL 12.1 g/dL; HEMOGLOBIN A1C 0.61 g/dL; HEMOGLOBIN A1C % 6.8 % (4.6-6.2)
[2018-12-16 12:08] LABS: FREE T4 (FREE THYROXINE) 1.34 ng/dL (0.58-1.64)
== END 2018-12-16 10:30 | disposition home or self-care (01) ==
LOC: LAB 10:29
PROVIDERS: ATTEND Physician Assistant
DX: M35.3 Polymyalgia rheumatica (principal); R73.9 Hyperglycemia, unspecified; E03.9 Hypothyroidism, unspecified; M10.9 Gout, unspecified; E79.0 Hyperuricemia without signs of inflammatory arthritis and tophaceous disease; I10 Essential (primary) hypertension
CPT/HCPCS: 36415; 83036; 84439; 84443; 84550; 85025; 85651; 86140

== ENCOUNTER 2018-12-22 11:01 | Outpatient (CLI) | payer MEDICARE, OTHER ==
[2018-12-22 11:23] LABS: CREATININE,URINE 39.2 mg/dL; PROTEIN/CREATININE RATIO,URINE 0.2 (<=0.2)
[2018-12-22 12:23] LABS: PHOSPHORUS 3.7 mg/dL (2.5-4.6)
== END 2018-12-22 11:02 | disposition home or self-care (01) ==
LOC: LAB 11:01
PROVIDERS: ATTEND Internal Medicine Nephrology
DX: N17.9 Acute kidney failure, unspecified (principal)
CPT/HCPCS: 36415; 80069; 82570; 84156

== ENCOUNTER 2019-01-20 08:00 | Outpatient (CLI) | payer MEDICARE, OTHER ==
[2019-01-22 10:32] LABS: DNA (DS) ANTIBODY 29 IU/mL
[2019-01-22 12:11] LABS: COMPLEMENT COMPONENT C3C 153 mg/dL (83-193); COMPLEMENT COMPONENT C4C 33 mg/dL (15-57)
== END 2019-01-20 23:59 | disposition home or self-care (01) ==
LOC: LAB.WCP 08:00
PROVIDERS: ATTEND Internal Medicine Rheumatology
DX: R76.8 Other specified abnormal immunological findings in serum (principal); N04.9 Nephrotic syndrome with unspecified morphologic changes
CPT/HCPCS: 36415; 86160; 86225

== ENCOUNTER 2019-02-18 11:36 | Outpatient (CLI) | payer MEDICARE, OTHER ==
[2019-02-18 14:07] LABS: FREE T4 (FREE THYROXINE) 1.53 ng/dL (0.58-1.64)
== END 2019-02-18 11:37 | disposition home or self-care (01) ==
LOC: LAB 11:36
PROVIDERS: ATTEND Physician Assistant
DX: E03.9 Hypothyroidism, unspecified (principal)
CPT/HCPCS: 36415; 84439; 84443

== ENCOUNTER 2019-03-26 10:37 | Outpatient (CLI) | payer MEDICARE, OTHER | END 2019-03-26 10:38 | disposition home or self-care (01) | LOC: LAB 10:37 | PROVIDERS: ATTEND Internal Medicine Rheumatology | DX: M35.3 Polymyalgia rheumatica (principal) | CPT/HCPCS: 36415; 85651; 86140 ==

== ENCOUNTER 2019-08-03 10:38 | Outpatient (CLI) | payer MEDICARE, OTHER | END 2019-08-03 10:39 | disposition home or self-care (01) | LOC: LAB 10:38 | PROVIDERS: ATTEND Physician Assistant | DX: E03.9 Hypothyroidism, unspecified (principal) | CPT/HCPCS: 36415; 84443 ==

== ENCOUNTER 2019-08-25 09:50 | Outpatient (CLI) | payer MEDICARE, OTHER ==
[2019-08-25 09:57] LABS: BASOPHILS # (AUTO) 0.1 10^3/uL (0.0-0.1); EOSINOPHILS # (AUTO) 0.4 10^3/uL (0.0-0.7); EOSINOPHILS % (AUTO) 5.6 %; LYMPHOCYTES # (AUTO) 1.1 10^3/uL (1.5-3.5); LYMPHOCYTES % (AUTO) 16.4 %; MEAN CORPUSCULAR HEMOGLOBIN 30.2 pg (27.0-31.0); MEAN CORPUSCULAR HGB CONC 31.6 g/dL (32.0-36.0); MEAN CORPUSCULAR VOLUME 95.6 fL (81.0-99.0); MEAN PLATELET VOLUME 9.3 fL (7.9-10.8); MONOCYTES # (AUTO) 0.9 10^3/uL (0.0-1.0); MONOCYTES % (AUTO) 13.1 %; NEUTROPHILS # (AUTO) 4.4 10^3/uL (1.5-6.6); NEUTROPHILS % (AUTO) 63.6 %; PLT - PLATELET COUNT 292 10^3/uL (130-450); RED BLOOD COUNT 3.64 10^6/uL (4.20-5.40); RED CELL DISTRIBUTION WIDTH 13.2 % (12.0-15.0)
[2019-08-25 10:07] LABS: BILIRUBIN,URINE NEGATIVE (NEGATIVE); GLUCOSE, URINE (UA) NEGATIVE (NEGATIVE); KETONES,URINE (UA) NEGATIVE (NEGATIVE); LEUKOCYTE ESTERASE, URINE NEGATIVE (NEGATIVE); NITRITE,URINE NEGATIVE (NEGATIVE); OCCULT BLOOD,URINE NEGATIVE (NEGATIVE); PROTEIN,URINE NEGATIVE (NEGATIVE); UROBILINOGEN,URINE 0.2 (NORMAL) E.U./dL (NORMAL)
[2019-08-25 10:12] LABS: CLARITY,URINE CLEAR (CLEAR)
[2019-08-25 10:24] LABS: BACTERIA,URINE Rare /HPF (None Seen); RBC,URINE None Seen /HPF (0-5); SQUAMOUS EPITHELIAL CELL,UR RARE Squamous (<= Few)
[2019-08-25 10:29] LABS: ALBUMIN 3.7 g/dL (3.2-5.5); ALBUMIN/GLOBULIN RATIO 1.3 (1.0-2.2); BILIRUBIN,TOTAL 0.5 mg/dL (0.2-1.0); CREATININE 1.1 mg/dL (0.4-1.0); TOTAL PROTEIN 6.6 g/dL (6.7-8.2)
[2019-08-25 10:47] LABS: CREATININE,URINE 19.2 mg/dL
[2019-08-25 10:56] LABS: TOTAL PROTEIN,URINE TIMED < 6 mg/dL
--- NOTE | 2019-08-25 12:50 | DEXA Report ---
Reason: OSTEOPOROSIS Procedure Date: 08/25/2019 Accession Number: [id number] / [id number] Procedure: DEX - Dexa Spine and/or Hip CPT Code: Final Report FULL RESULT: PROCEDURE: Dexa Spine and/or Hip INDICATIONS: OSTEOPOROSIS TECHNIQUE: Dual energy x-ray absorptiometry (DXA) was performed on a [employer] System. Regions measured are the AP Spine, femoral neck, and if needed forearm. COMPARISON: Prior same technique bone densitometry study performed 04/14/2018 reviewed. FINDINGS: Lumbar Spine: Bone Mineral Density 1.343 g/cm/cm,T score 1.4, normal. This represents a significant improvement by 11.2% in bone mineral density. Left Hip: Bone Mineral Density 0.780 g/cm/cm,T score -1.8, osteopenia. Left Femoral Neck: Bone Mineral Density 0.67 g/cm/cm, T score -2.7, osteopenia (T score greater or equal to -1.0: NORMAL) (T score from -1.1 to -2.4: OSTEOPENIA) (T score less than or equal to -2.5 to: OSTEOPOROSIS) Impression: Significant interval improvement in bone mineral density within the lumbosacral spine, but persistent osteopenia involving the left femoral region and the femoral neck specifically. Patients with diagnosis of osteoporosis or osteopenia should have regular bone mineral density assessment. For those eligible for Medicare, routine testing is allowed once every 2 years. Testing frequency can be increased for patients who have rapidly progressing disease or for those who are receiving medical therapy to restore bone mass. Reviewed by: Eugene Gary MD on 08/25/2019 12:48 PM PDT Approved by: Eugene Gary MD on 08/25/2019 12:48 PM PDT Station ID: [id number]
[2019-08-27 12:09] LABS: COMPLEMENT COMPONENT C3C 148 mg/dL (83-193); COMPLEMENT COMPONENT C4C 35 mg/dL (15-57)
== END 2019-08-25 09:51 | disposition home or self-care (01) ==
LOC: DI 09:50
PROVIDERS: ATTEND Internal Medicine Rheumatology
DX: M81.0 Age-related osteoporosis without current pathological fracture (principal); M31.6 Other giant cell arteritis; R76.8 Other specified abnormal immunological findings in serum; N04.9 Nephrotic syndrome with unspecified morphologic changes
CPT/HCPCS: 36415; 77080; 80053; 81001; 82570; 84156; 85025; 85651; 86140; 86160

== ENCOUNTER 2019-08-27 10:42 | Outpatient (CLI) | payer MEDICARE, OTHER ==
--- NOTE | 2019-08-27 14:05 | XRAY Report ---
Reason: LEFT WRIST PAIN Procedure Date: 08/27/2019 Accession Number: [id number] / [id number] Procedure: WCP - Wrist 3 View LT CPT Code: Final Report FULL RESULT: PROCEDURE: Wrist 3 View LT INDICATIONS: LEFT WRIST PAIN TECHNIQUE: 3 views of the wrist were acquired. COMPARISON: None FINDINGS: Bones: No fractures or dislocations. No suspicious bony lesions. There is severe first CMC degenerative narrowing with areas of subchondral sclerosis and periarticular lucency. Scattered areas of IP degenerative narrowing are identified. Scaphoid view: Not obtained. Soft tissues: No suspicious soft tissue calcifications. IMPRESSION: Prominent first CMC degenerative narrowing suggestive osteoarthritis. Reviewed by: Regla San MD on 08/27/2019 2:04 PM PDT Approved by: Regla San MD on 08/27/2019 2:04 PM PDT Station ID: [id number]
== END 2019-08-27 10:43 | disposition home or self-care (01) ==
LOC: DI.WCP 10:42
PROVIDERS: ATTEND Family Medicine
DX: M19.032 Primary osteoarthritis, left wrist (principal)

== ENCOUNTER 2019-09-27 07:00 | Outpatient (CLI) | payer MEDICARE, OTHER | END 2019-09-27 23:59 | disposition home or self-care (01) | LOC: LAB.R 07:00 | PROVIDERS: ATTEND Nurse Practitioner Family | DX: R30.0 Dysuria (principal) | CPT/HCPCS: 87086 ==

== ENCOUNTER 2019-11-03 10:24 | Outpatient (CLI) | payer MEDICARE, OTHER ==
[2019-11-03 11:04] LABS: CREATININE 1.1 mg/dL (0.4-1.0); CRP - C-REACTIVE PROTEIN 1.5 mg/dL (0-1.0)
[2019-11-05 11:35] LABS: COMPLEMENT COMPONENT C3C 140 mg/dL (83-193); COMPLEMENT COMPONENT C4C 34 mg/dL (15-57)
== END 2019-11-03 10:25 | disposition home or self-care (01) ==
LOC: LAB 10:24
PROVIDERS: ATTEND Internal Medicine Rheumatology
DX: M31.6 Other giant cell arteritis (principal); N04.9 Nephrotic syndrome with unspecified morphologic changes; R76.8 Other specified abnormal immunological findings in serum
CPT/HCPCS: 36415; 82565; 84520; 85651; 86140; 86160

== ENCOUNTER 2020-05-31 08:00 | Outpatient (CLI) | payer MEDICARE, OTHER ==
[2020-05-31 17:57] LABS: BASOPHILS # (AUTO) 0.1 10^3/uL (0.0-0.1); BASOPHILS % (AUTO) 1.2 %; EOSINOPHILS # (AUTO) 0.3 10^3/uL (0.0-0.7); EOSINOPHILS % (AUTO) 4.9 %; HCT - HEMATOCRIT 36.2 % (37.0-47.0); HGB - HEMOGLOBIN 11.2 g/dL (12.0-16.0); LYMPHOCYTES # (AUTO) 1.1 10^3/uL (1.5-3.5); LYMPHOCYTES % (AUTO) 16.5 %; MEAN CORPUSCULAR HEMOGLOBIN 30.6 pg (27.0-31.0); MEAN CORPUSCULAR HGB CONC 30.9 g/dL (32.0-36.0); MEAN CORPUSCULAR VOLUME 98.9 fL (81.0-99.0); MEAN PLATELET VOLUME 10.7 fL (7.9-10.8); MONOCYTES # (AUTO) 0.8 10^3/uL (0.0-1.0); MONOCYTES % (AUTO) 11.3 %; NEUTROPHILS # (AUTO) 4.5 10^3/uL (1.5-6.6); PLT - PLATELET COUNT 252 10^3/uL (130-450); RED BLOOD COUNT 3.66 10^6/uL (4.20-5.40); RED CELL DISTRIBUTION WIDTH 13.8 % (12.0-15.0); WHITE BLOOD COUNT 6.8 x10^3/uL (4.8-10.8)
[2020-05-31 18:35] LABS: THYROID STIMULATING HORMONE 0.37 uIU/mL (0.34-5.60)
[2020-05-31 21:00] LABS: ESTIMATED AVERAGE GLUCOSE 126 mg/dL (70-100)
== END 2020-05-31 23:59 | disposition home or self-care (01) ==
LOC: LAB.N 08:00
PROVIDERS: ATTEND Physician Assistant Medical
DX: G60.9 Hereditary and idiopathic neuropathy, unspecified (principal)
CPT/HCPCS: 36415; 83036; 83921; 84443; 85025

== ENCOUNTER 2020-06-19 08:11 | Outpatient (CLI) | payer MEDICARE, OTHER ==
[2020-06-19 12:56] LABS: ALBUMIN/GLOBULIN RATIO 1.5 (1.0-2.2); ALKALINE PHOSPHATASE 57 IU/L (42-121); ALT ALANINE AMINOTRANSFERASE 19 IU/L (10-60); AST ASPARTATE AMINOTRANSFERASE 20 IU/L (10-42); BILIRUBIN,TOTAL 0.7 mg/dL (0.2-1.0); BUN - BLOOD UREA NITROGEN 36 mg/dL (6-20); CARBON DIOXIDE - CO2 24 mmol/L (21-32); CHLORIDE 107 mmol/L (101-111); CHOL/HDL RATIO 2.7 (<4.4); CHOLESTEROL 232 mg/dL; CREATININE 1.1 mg/dL (0.4-1.0); GFR - MDRD 48 (>89); GLUCOSE 90 mg/dL (70-100); HDL CHOLESTEROL 85 mg/dL; LDL CHOLESTEROL,CALCULATED 122 mg/dL; LDL/HDL RATIO 1.4 (<4.4); POTASSIUM 3.8 mmol/L (3.5-5.0); SODIUM 139 mmol/L (135-145); TOTAL PROTEIN 6.6 g/dL (6.7-8.2); TRIGLYCERIDES 125 mg/dL; URIC ACID 6.7 mg/dL (2.6-7.2); VLDL CHOLESTEROL 25 mg/dL
[2020-06-19 13:08] LABS: THYROID STIMULATING HORMONE 0.42 uIU/mL (0.34-5.60)
[2020-06-19 18:35] LABS: CREATININE,URINE 169.3 mg/dL; MICROALBUM/CREATININE RATIO,UR 11.2 ug/mg (<30.0); MICROALBUMIN,URINE 1.9 mg/dL (0-300.0); PROTEIN/CREATININE RATIO,URINE 0.1 (<=0.2)
== END 2020-06-19 08:12 | disposition home or self-care (01) ==
LOC: LAB.N 08:11
PROVIDERS: ATTEND Internal Medicine
DX: G60.9 Hereditary and idiopathic neuropathy, unspecified (principal); R73.9 Hyperglycemia, unspecified; N04.0 Nephrotic syndrome with minor glomerular abnormality; M10.9 Gout, unspecified
CPT/HCPCS: 36415; 80053; 80061; 81599; 82043; 82570; 83721; 84156; 84207; 84443; 84550; 86334

== ENCOUNTER 2020-07-19 12:39 | Outpatient (CLI) | payer MEDICARE, OTHER ==
--- NOTE | 2020-07-19 17:00 | XRAY Report ---
PROCEDURE: Foot 2 View BILAT INDICATIONS: BILATERAL FOOT PAIN TECHNIQUE: 2 views of the foot were acquired. COMPARISON: X-ray foot left 09/09/2018 FINDINGS: Bones: Old left third metatarsal fracture. Scattered areas of IP degenerative narrowing are noted karolyn aterally. No suspicious bony lesions. Soft tissues: No tibiotalar joint effusion. Achilles tendon appears normal. IMPRESSION: Scattered IP degenerative narrowing most consistent with degenerative change. Reviewed by: Regla San MD on 07/19/2020 4:59 PM PDT Approved by: Regla San MD on 07/19/2020 4:59 PM PDT Station ID: [id number]
== END 2020-07-19 12:40 | disposition home or self-care (01) ==
LOC: DI.N 12:39
PROVIDERS: ATTEND Internal Medicine Rheumatology
DX: M19.072 Primary osteoarthritis, left ankle and foot (principal); M19.071 Primary osteoarthritis, right ankle and foot

== ENCOUNTER 2020-10-25 16:37 | Outpatient (CLI) | payer MEDICARE, OTHER ==
--- NOTE | 2020-11-01 06:08 | Ultrasound Report ---
PROCEDURE: Pelvic Complete INDICATIONS: LT SIDE OVARIAN CYST. TECHNIQUE: Real-time transabdominal scanning was performed of the pelvic organs, with image documentation. Trans vaginal exam was not performed. COMPARISON: Pelvic ultrasound 10/23/2018. CT abdomen and pelvis 01/13/2018. FINDINGS: Uterus: Surgically absent. Ovaries: Right ovary is not identified. Left ovarian anechoic cyst measuring 5.8 x 5.2 x 5 cm, volume of 78 cc. (Previously 5.7 x 5.3 x 4.2 c m, volume of 66 cc and 5.6 x 5.4 x [address] 01/13/2018). The septation is less conspicuous. No int ernal vascularity. No mural nodule identified. Other: No free pelvic fluid. IMPRESSION: 1. Large left ovarian cyst measuring 5.8 cm appears slightly increased in size compared to ultrasound 2019. Indolent neoplasm is difficult to exclude. -Recommend gynecological consultation if not your performed. Pelvic MRI with IV contrast may be helpf ul for further characterization. 2. Right ovary is not seen. 3. Post sternotomy. Reviewed by: Meño Tsang MD on 10/25/2020 5:07 PM AAN Approved by: Meño Tsang MD on 10/25/2020 5:07 PM ANA Station ID: [id number]
== END 2020-10-25 16:38 | disposition home or self-care (01) ==
LOC: DI 16:37
PROVIDERS: ATTEND Internal Medicine
DX: N83.292 Other ovarian cyst, left side (principal)

== ENCOUNTER 2021-06-25 09:18 | Outpatient (CLI) | payer MEDICARE, OTHER ==
[2021-06-25 10:04] LABS: ALBUMIN 4.2 g/dL (3.2-5.5); ALBUMIN/GLOBULIN RATIO 1.8 (1.0-2.2); ALKALINE PHOSPHATASE 53 IU/L (42-121); ALT ALANINE AMINOTRANSFERASE 18 IU/L (10-60); AST ASPARTATE AMINOTRANSFERASE 22 IU/L (10-42); BILIRUBIN,TOTAL 0.8 mg/dL (0.2-1.0); BUN - BLOOD UREA NITROGEN 29 mg/dL (6-20); CALCIUM 8.8 mg/dL (8.5-10.3); CARBON DIOXIDE - CO2 23 mmol/L (21-32); CHLORIDE 108 mmol/L (101-111); CHOL/HDL RATIO 2.8 (<4.4); CHOLESTEROL 234 mg/dL; CREATININE 1.2 mg/dL (0.4-1.0); GFR - MDRD 43 (>89); GLUCOSE 94 mg/dL (70-100); HDL CHOLESTEROL 85 mg/dL; LDL CHOLESTEROL,CALCULATED 129 mg/dL; LDL/HDL RATIO 1.5 (<4.4); SODIUM 141 mmol/L (135-145); TOTAL PROTEIN 6.5 g/dL (6.7-8.2); TRIGLYCERIDES 99 mg/dL; URIC ACID 6.7 mg/dL (2.6-7.2); VLDL CHOLESTEROL 20 mg/dL
[2021-06-25 12:01] LABS: ESTIMATED AVERAGE GLUCOSE 120 mg/dL (70-100); HEMOGLOBIN A1c% 5.8 % (4.27-6.07)
== END 2021-06-25 09:19 | disposition home or self-care (01) ==
LOC: LAB 09:18
PROVIDERS: ATTEND Internal Medicine
DX: I10 Essential (primary) hypertension (principal); E09.9 Drug or chemical induced diabetes mellitus without complications; M10.9 Gout, unspecified
CPT/HCPCS: 36415; 80053; 80061; 83036; 83721; 84550

== ENCOUNTER 2021-10-17 09:52 | Outpatient (CLI) | payer MEDICARE, OTHER ==
--- NOTE | 2021-10-17 15:45 | DEXA Report ---
PROCEDURE: Dexa Spine and/or Hip INDICATIONS: OSTEOPOROSIS TECHNIQUE: Dual energy x-ray absorptiometry (DXA) was performed on a [employer] System. Regions measur ed are the AP Spine, femoral neck, and if needed forearm. COMPARISON: None. FINDINGS: Lumbar Spine: Bone Mineral Density 1.335 g/cm/cm,T score 1.3, normal Left total Hip: Bone Mineral Density 0.750 g/cm/cm,T score -2.0, osteopenia Left Femoral Neck: Bone Mineral Density 0.672 g/cm/cm, T score -2.6, osteoporosis (T score greater or equal to -1.0: NORMAL) (T score from -1.1 to -2.4: OSTEOPENIA) (T score less than or equal to -2.5 to: OSTEOPOROSIS) Impression: Osteoporosis Patients with diagnosis of osteoporosis or osteopenia should have regular bone mineral density assess ment. For those eligible for Medicare, routine testing is allowed once every 2 years. Testing frequ ency can be increased for patients who have rapidly progressing disease or for those who are receivin g medical therapy to restore bone mass. Reviewed by: Rasta Syed on 10/17/2021 3:44 PM PDT Approved by: Rasta Syed on 10/17/2021 3:44 PM PDT Station ID: [id number]
== END 2021-10-17 09:53 | disposition home or self-care (01) ==
LOC: DI 09:52
PROVIDERS: ATTEND Internal Medicine Rheumatology
DX: M81.0 Age-related osteoporosis without current pathological fracture (principal)

== ENCOUNTER 2022-04-15 08:32 | Outpatient (CLI) | payer MEDICARE, OTHER ==
[2022-04-15 13:22] LABS: THYROID STIMULATING HORMONE 0.47 uIU/mL (0.34-5.60)
[2022-04-15 13:23] LABS: BUN - BLOOD UREA NITROGEN 36 mg/dL (6-20); CALCIUM 9.3 mg/dL (8.5-10.3); CARBON DIOXIDE - CO2 28 mmol/L (21-32); CHLORIDE 110 mmol/L (101-111); CHOL/HDL RATIO 2.8 (<4.4); CHOLESTEROL 228 mg/dL; CREATININE 1.2 mg/dL (0.4-1.0); GFR - MDRD 43 (>89); GLUCOSE 91 mg/dL (70-100); HDL CHOLESTEROL 82 mg/dL; LDL CHOLESTEROL,CALCULATED 120 mg/dL; LDL/HDL RATIO 1.5 (<4.4); POTASSIUM 4.4 mmol/L (3.5-5.0); SODIUM 142 mmol/L (135-145); TRIGLYCERIDES 131 mg/dL; URIC ACID 6.6 mg/dL (2.6-7.2); VLDL CHOLESTEROL 26 mg/dL
[2022-04-15 13:41] LABS: ESTIMATED AVERAGE GLUCOSE 126 mg/dL (70-100)
== END 2022-04-15 08:33 | disposition home or self-care (01) ==
LOC: LAB.N 08:32
PROVIDERS: ATTEND Internal Medicine
DX: E78.5 Hyperlipidemia, unspecified (principal); E03.9 Hypothyroidism, unspecified; E09.9 Drug or chemical induced diabetes mellitus without complications; M10.9 Gout, unspecified; N18.31 Chronic kidney disease, stage 3a
CPT/HCPCS: 36415; 80048; 80061; 83036; 83721; 84443; 84550

== ENCOUNTER 2022-06-13 10:06 | Outpatient (CLI) | payer MEDICARE, OTHER ==
--- NOTE | 2022-06-13 10:10 | Sleep Patient Instructions ---
Sleep Center Visit Summary - Patient Visit Information Reason for Visit: Initial consult to Initial consult for evaluation of sleep disordered breathing and other sleep issues. - Patient Instructions Instructions Attached: Sleep Study, Sleep Clinic Visit Additional Instructions: You will be completing a sleep study, either an in-lab polysomnography (PSG) or home sleep study (HST). You will follow-up in the sleep care office after the sleep study is completed to hear the results and talk about therapy, if needed. You will be called by our office staff to schedule this appointment, but you may contact us with any questions. - Clinic Information Contact: [facility] [address] [place] [address] [email or web address] T: [phone]
[2022-06-13 10:59] VITALS: BP 122/60
--- NOTE | 2022-06-13 10:59 | SLEEP CARE CONSULTATION ---
Information from patient questionnaire entered by Maria D Dodson. I have reviewed and concur with the information entered by Maria D Dodson. This document represents the service I personally performed and the decisions made by me, Kaia Juarez ARNP. History of Present Illness Service Date and Time: 06/13/2022 1006 Reason for Visit: New patient Chief Complaint: reports: Insomnia, Unrefreshed sleep, Fatigue Date of Onset: 6 MONTHS Usual bedtime: 10-1030 PM Time it takes to fall asleep: 30 MIN SOMETIMES LONGER Snores at night: No Observed to quit breathing while asleep: No Number of times waking at night: 2 Reasons for waking at night: reports: Bathroom. denies: Choking, Snoring, Gas ping for air Toss, Turn, or Twitch while sleeping: Yes Recalls having dreams: Yes (occasionally) Usually gets out of bed at: 730AM Feels refreshed in the morning: No Morning headache: No Sleepy or fatigued during the day: Yes Ever fallen asleep while driving: No Takes day naps: Yes (3-4 times a week, about 30 minutes) Dreams during day naps: No Prior sleep studies: No Additional HPI information: I had the pleasure of seeing ROSMERY BUTLER today regarding the possibility of her having a sleep disorder. Her current complaints are insomnia, unrefreshed sleep and fatigue. She states she has had insomnia for years. She has difficulty falling asleep and in last 6 months she is waking up frequently at night and unable to fall back to sleep. She is taking melatonin in last few months which helps her fall asleep. Her daughter has told her that she snored loudly when sleeping in same room a couple years ago. 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 Patient is / and lives in [place]. Have you smoked in the past 12 months: No Alcohol use: No Caffeine use: No Family History Family history of sleep disordered breathing: No Allergies and Home Medications Known drug allergies: Yes (SULFA, latex, nsaids) Drug allergies reviewed: Yes Home medication list reviewed: Yes Allergy and home medication list: Allergies latex Allergy (Verified 06/12/22 13:27) Rash Sulfa (Sulfonamide Antibiotics) Allergy (Verified 06/12/22 13:27) Unknown NSAIDS (Non-Steroidal Anti-Inflamma Adverse Reaction (Verified 06/12/22 13:27) kidney failure Medications: Hydroxychloroquine Levothyroxine Prednisone Allopurinol Amlodipine Metoprolol Cand[place]arten Review of Systems Weight gain over past 5 years: 3 Cardiovascular: reports: high blood pressure, palpitations Gastrointestinal: denies: heartburn Neurological: denies: headaches Psychiatric: denies: anxiety, depression Ear/Nose/Throat: denies: tonsillectomy Endocrine: reports: thyroid disease, too hot or cold Musculoskeletal: reports: joint pain Immunologic: reports: itching Physical Exam Vital signs obtained and entered by: MARIA D Reza MA Blood Pressure: 122/60 (LEFT ARM) Cuff size: regular Heart Rate: 64 O2 Saturation: 97 Height: 5 ft 2 in Weight: 137 lb 6.4 oz Body Mass Index: 25.1 BMI Classification: Overweight Neck circumference: 15.75 Mouth and throat: narrow oropharynx Soft palate: long Hard palate: normal Uvula: normal Uvula visualization: 0% Mallampati Class IV Tongue: enlarged in size with teeth ramos on lateral edges Tonsils: small Neck: normal w/o lymphadenopathy or thyromegaly Heart: regular rate and rhythm Lungs: clear bilaterally Impression and Plan 1. Suspected Obstructive Sleep Apnea-Hypopnea Syndrome, as suggested by a history of irregular snoring, unrefreshed sleep, and insomnia. Narrow oropharynx and obesity are common predisposing factors for obstructive sleep apnea-hypopnea syndrome. I recommend proceeding to polysomnography to confirm the diagnosis and to assess severity. If the patient has significant sleep disordered breathing, a manual CPAP titration study will also be performed to find the optimal treatment pressure. I informed the patient of what the sleep studies involve and after some discussion, obtained agreement to proceed. The pathophysiology of obstructive sleep apnea-hypopnea syndrome was discussed with the patient and health risks of cardiovascular and cerebrovascular disease if not treated. 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 Patient agreed to plan. Patient concerned she may not be able to sleep the night of the study. She has taken Ambien in the past without any adverse reactions. I will give her a one time dose of 5 mg Zolpidem for the night of the sleep study. She is aware that she needs to bring this with her to the study. * Schedule polysomnography +- manual CPAP titration study and return in 1-2 weeks after the study to discuss result and initiate therapy. * Zolpidem 5 mg for night of sleep study * Avoid long distance driving or driving when feeling sleepy. * Avoid alcohol, sedative and muscle relaxant around bedtime. * Attempt to lose weight. * Review instructions provided by trained office staff on how to prepare for the sleep study. * Return for follow-up after sleep study completed. Visit Type: In Office Time Spent with Patient (minutes): 31 Provider Statement: I spent 100% of the Face to Face Visit with the patient with greater than 50% spent counseling the patient and coordination of care.
== END 2022-06-13 10:07 | disposition home or self-care (01) ==
LOC: SC 10:06
PROVIDERS: ATTEND Nurse Practitioner Family
DX: R53.83 Other fatigue (principal); R06.83 Snoring; G47.8 Other sleep disorders; I10 Essential (primary) hypertension; E66.3 Overweight; Z68.25 Body mass index [BMI] 25.0-25.9, adult
CPT/HCPCS: 99203; G0463; 99212

== ENCOUNTER 2022-06-28 15:28 | Outpatient (CLI) | payer MEDICARE, OTHER ==
[2022-06-28 17:32] LABS: BILIRUBIN,URINE NEGATIVE (NEGATIVE); GLUCOSE, URINE (UA) NEGATIVE (NEGATIVE); KETONES,URINE (UA) TRACE mg/dL (NEGATIVE); LEUKOCYTE ESTERASE, URINE NEGATIVE (NEGATIVE); NITRITE,URINE POSITIVE (NEGATIVE); OCCULT BLOOD,URINE NEGATIVE (NEGATIVE); PH,URINE 5.5 PH (5.0-7.5); PROTEIN,URINE TRACE mg/dL (NEGATIVE); UROBILINOGEN,URINE 0.2 (NORMAL) E.U./dL (NORMAL)
[2022-06-28 17:34] LABS: CLARITY,URINE HAZY (CLEAR)
[2022-06-28 17:40] LABS: BASOPHILS # (AUTO) 0.1 10^3/uL (0.0-0.1); BASOPHILS % (AUTO) 0.9 %; EOSINOPHILS # (AUTO) 0.4 10^3/uL (0.0-0.7); EOSINOPHILS % (AUTO) 5.1 %; HCT - HEMATOCRIT 34.1 % (37.0-47.0); LYMPHOCYTES # (AUTO) 0.9 10^3/uL (1.5-3.5); LYMPHOCYTES % (AUTO) 12.8 %; MEAN CORPUSCULAR HEMOGLOBIN 31.3 pg (27.0-31.0); MEAN CORPUSCULAR HGB CONC 32.3 g/dL (32.0-36.0); MEAN CORPUSCULAR VOLUME 97.2 fL (81.0-99.0); MEAN PLATELET VOLUME 10.5 fL (7.9-10.8); MONOCYTES # (AUTO) 0.5 10^3/uL (0.0-1.0); MONOCYTES % (AUTO) 7.5 %; NEUTROPHILS % (AUTO) 73.4 %; PLT - PLATELET COUNT 243 10^3/uL (130-450); RED BLOOD COUNT 3.51 10^6/uL (4.20-5.40); WHITE BLOOD COUNT 6.8 x10^3/uL (4.8-10.8)
[2022-06-28 17:44] LABS: BACTERIA,URINE Many /HPF (None Seen); SQUAMOUS EPITHELIAL CELL,UR FEW Squamous (<= Few)
[2022-06-28 17:48] LABS: CREATININE,URINE 209.8 mg/dL; PROTEIN/CREATININE RATIO,URINE 0.2 (<=0.2)
[2022-06-28 17:59] LABS: ALBUMIN 3.8 g/dL (3.2-5.5); ALBUMIN/GLOBULIN RATIO 1.2 (1.0-2.2); BILIRUBIN,TOTAL 0.5 mg/dL (0.2-1.0); CALCIUM 8.8 mg/dL (8.5-10.3); CREATININE 1.4 mg/dL (0.4-1.0); CRP - C-REACTIVE PROTEIN 1.4 mg/dL (0-1.0); POTASSIUM 4.7 mmol/L (3.5-5.0); TOTAL PROTEIN 6.9 g/dL (6.7-8.2)
[2022-06-29 06:10] LABS: COMPLEMENT C3 121 mg/dL (82-167); COMPLEMENT C4 26 mg/dL (12-38)
== END 2022-06-28 15:29 | disposition home or self-care (01) ==
LOC: LAB.N 15:28
PROVIDERS: ATTEND Internal Medicine Rheumatology
DX: M32.9 Systemic lupus erythematosus, unspecified (principal)
CPT/HCPCS: 36415; 80053; 81001; 82570; 84156; 85025; 85651; 86140; 86160; 86225

== ENCOUNTER 2022-08-27 10:15 | Outpatient (CLI) | payer MEDICARE, OTHER | END 2022-08-27 10:30 | disposition home or self-care (01) | LOC: LAB.N 10:15 | PROVIDERS: ATTEND Specialist | DX: R30.0 Dysuria (principal) | CPT/HCPCS: 87077; 87086; 87181 ==

== ENCOUNTER 2022-09-14 08:00 | Outpatient (CLI) | payer MEDICARE, OTHER ==
[2022-09-14 19:32] LABS: BILIRUBIN,URINE NEGATIVE (NEGATIVE); GLUCOSE, URINE (UA) NEGATIVE (NEGATIVE); KETONES,URINE (UA) NEGATIVE (NEGATIVE); LEUKOCYTE ESTERASE, URINE NEGATIVE (NEGATIVE); NITRITE,URINE NEGATIVE (NEGATIVE); OCCULT BLOOD,URINE NEGATIVE (NEGATIVE); PH,URINE 5.5 PH (5.0-7.5); PROTEIN,URINE NEGATIVE (NEGATIVE); UROBILINOGEN,URINE 0.2 (NORMAL) E.U./dL (NORMAL)
[2022-09-14 19:33] LABS: CLARITY,URINE CLEAR (CLEAR)
== END 2022-09-14 23:59 | disposition home or self-care (01) ==
LOC: LAB.N 08:00
PROVIDERS: ATTEND Physician Assistant
DX: N30.00 Acute cystitis without hematuria (principal)
CPT/HCPCS: 81001; 81003; 87086